=== PATIENT | male | born 1985 | race Caucasian/White ===

== ENCOUNTER 2019-08-13 12:16 | Emergency (ER) | payer MEDICAID, SELFPAY ==
[2019-08-13 12:17] VITALS: BP 120/65; PULSE 74; RESP 16; TEMP 36.6; O2SAT 97; BMI 25.7
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
[2019-08-13] MEDS: Ondansetron 4 MG/2 ML Vial IV (12:37)
[2019-08-13] MEDS: morphine 8 MG/ML Syringe 6 MG IV ×2 (12:37→13:48)
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
[2019-08-13 16:00] VITALS: BP 119/78; PULSE 69; RESP 16; O2SAT 98
== END 2019-08-13 16:03 | disposition home or self-care (01) ==
PROVIDERS: Emergency Provider Emergency Medicine
DX: S52.225A Nondisplaced transverse fracture of shaft of left ulna, initial encounter for closed fracture (principal); S01.01XA Laceration without foreign body of scalp, initial encounter; S80.02XA Contusion of left knee, initial encounter; Y00.XXXA Assault by blunt object, initial encounter; Y93.9 Activity, unspecified; Y92.9 Unspecified place or not applicable; Z72.0 Tobacco use
CPT/HCPCS: 12002; 29125; 70450; 73090; 73564; 96374; 96375; 99285; A4216; J2405

== ENCOUNTER 2020-05-21 10:35 | Emergency (ER) | payer MEDICAID, SELFPAY ==
[2020-05-21 10:36] VITALS: PULSE 91; RESP 16; TEMP 35.7; O2SAT 98; BMI 25.8
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
--- NOTE | 2020-05-21 10:49 | ED.DEP ---
ED Disposition - Plan for ED Patient: Disposition: Home or Assisted Living Instructions: ED First- and Second-Degree Sifuentes ... Referrals: Emmy Santo [NON-STAFF] - 3-5 Days if not improving Additional Instructions: Keep the wounds clean. You may shower or bathe. Wash them carefully and thoroughly. Do not break the blisters. Apply antibiotic ointment to all burn areas to try to prevent infection. Cool compresses to the burn areas to decrease pain. Tylenol and Motrin for pain. If you see signs of infection to the sifuentes such as pus or worsening and spreading redness with fever return.
[2020-05-21] MEDS: HYDROcodone Bitartrate/Apap 5/325 Tablet PO (10:56)
[2020-05-21] MEDS: Silver Sulfadiazine 1% Crm 50 gm Bottle 1 APPLIC TOPICAL (11:29)
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
== END 2020-05-21 11:39 | disposition home or self-care (01) ==
PROVIDERS: Emergency Provider Emergency Medicine
DX: T20.27XA Burn of second degree of neck, initial encounter (principal); T22.251A Burn of second degree of right shoulder, initial encounter; T22.252A Burn of second degree of left shoulder, initial encounter; T21.21XA Burn of second degree of chest wall, initial encounter; T22.211A Burn of second degree of right forearm, initial encounter; T22.212A Burn of second degree of left forearm, initial encounter; X11.8XXA Contact with other hot tap-water, initial encounter; Y93.9 Activity, unspecified; Y92.9 Unspecified place or not applicable; Z72.0 Tobacco use
CPT/HCPCS: 99283

== ENCOUNTER 2020-11-18 22:42 | Emergency (ER) | payer MEDICAID, SELFPAY ==
--- NOTE | 2020-11-18 02:10 | RAD_ITS ---
STUDY: X-RAY - RIGHT HAND, ATTENTION THIRD FINGER REASON FOR EXAM: Male, 34 years old. Injury/Pain. Tip of the third finger is dark and swollen. TECHNIQUE: 3 view(s) of the finger were obtained. COMPARISON: X-ray hand 06/17/2013. FINDINGS: Normal metacarpal head. Normal metacarpophalangeal joint. Normal proximal phalanx. Normal middle phalanx. Normal distal phalanx. Normal proximal interphalangeal joint. Normal distal interphalangeal joint. RAD/Finger(s) Min 2 Views IMPRESSION: Normal x-ray examination of the finger. Electronically Signed: Noel Brooks MD at 3:05 EDT , Service support ,
[2020-11-18 22:43] VITALS: BP 176/152; PULSE 109; RESP 18; TEMP 37.2; O2SAT 97; BMI 24.5
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
[2020-11-18] MEDS: Ziprasidone IM 20 MG/ML VIAL IM (23:35)
[2020-11-19 00:18] LABS: Absolute Lymphocyte Count 2.74 X10^3/uL (0.83-4.51); Basophil# 0.04 X10^3/uL; Basophil% 0.4 % (0-1); Eosinophil# 0.19 X10^3/uL; Eosinophils% 1.9 % (0-5); Hematocrit 36.3 % (40-54); Hemoglobin 11.9 g/dL (13.0-16.5); Lymphocyte # 2.74 X10^3/ul (0.83-4.51); Lymphocyte % 27.1 % (19-41); Mean Corp Hgb Conc 32.8 g/dL (32-36); Mean Corpuscular Hgb 27.5 pg (27.0-32.0); Mean Platelet Vol. 9.1 fl (6.2-12.0); Monocyte# 1.07 X10^3/uL; Monocyte% 10.6 % (0-10); NRBC Flagged by Analyzer 0 % (0-5); Neutrophil # 6.04 X10^3/uL (2.7-7.7); Neutrophil % 59.8 % (47-70); Platelet Count 170 K/mm3 (150-450); RBC Distribution Width CV 13.2 % (11.6-14.6); RBC Distribution Width SD 40.6 fl (35.1-43.9); Red Blood Count 4.32 M/mm3 (4.6-6.2); White Blood Count 10.1 K/mm3 (4.4-11.0)
[2020-11-19 02:02] VITALS: RESP 16
[2020-11-19 03:50] VITALS: RESP 16
== END 2020-11-19 03:53 ==
PROVIDERS: Emergency Provider Emergency Medicine
DX: M79.644 Pain in right finger(s) (principal); J45.909 Unspecified asthma, uncomplicated; F17.210 Nicotine dependence, cigarettes, uncomplicated
CPT/HCPCS: 36415; 73140; 85025; 96372; 99283; J3486

== ENCOUNTER 2022-09-14 10:56 | Outpatient (REF) | payer SELFPAY ==
[2022-09-14 10:57] VITALS: BP 127/80; PULSE 150; RESP 26; TEMP 36.6; O2SAT 100; BMI 27.3
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
--- NOTE | 2022-09-14 11:22 | NURSING ---
NO OLD EKGS
--- NOTE | 2022-09-14 11:48 | RAD_ITS ---
INDICATION: chest pain EXAMINATION/TECHNIQUE: X-RAY - XR Chest 1 View COMPARISON: None available for comparison. FINDINGS: LINES/DEVICES: None. LUNGS: No consolidation, edema or effusion. No pneumothorax. MEDIASTINUM AND CARDIOVASCULAR STRUCTURES: Cardiac silhouette not enlarged. Central airways and mediastinal contour are unremarkable. BONES AND SOFT TISSUES: Unremarkable. RAD/Chest 1 View (Portable) IMPRESSION: No radiographic evidence of acute cardiopulmonary disease. Electronically Signed: Epifanio Anthony MD at 12:09 EDT ,
== END 2022-09-14 12:05 | disposition home or self-care (01) ==
LOC: EDREF 10:56
PROVIDERS: Visit Provider Emergency Medicine
DX: R07.9 Chest pain, unspecified (principal); J45.909 Unspecified asthma, uncomplicated; F17.210 Nicotine dependence, cigarettes, uncomplicated; F15.90 Other stimulant use, unspecified, uncomplicated
CPT/HCPCS: 71045; 93005

== ENCOUNTER 2022-11-20 05:19 | Emergency (ER) | payer MEDICAID, SELFPAY ==
[2022-11-20 05:21] VITALS: BP 141/96; PULSE 118; RESP 15; TEMP 36.8; O2SAT 96; BMI 25.7
--- NOTE | 2022-11-20 05:31 | EDS_ITS ---
HPI History of Present Illness Chief Complaint: Other, Pain/Inj Informant: patient and family Narrative Narrative: Presents with sore areas in his mouth. Patient states he has had these for 2 or 3 days. No known exposures but he did just get out of assisted about 5 days ago. He admits to smoking. He has a history of using methamphetamines and from his current behavior I would be suspicious that he is using again. He denies fevers or chills. No nausea vomiting. No myalgias. He also has some abrasions and some mild rash on his legs but he states this is from cutting trees and he just scraped them up and this is consistent with the finding. [facility] Medical History Asthma Home Medications hydrocodone 7.5 mg-acetaminophen 325 mg tablet 1 ea PO 4X/DAY PRN PRN Pain Or Fever ##14 08/13/19 [Rx Last Taken Unknown] MAGIC MOUTH WASH (BMX) 180 mL suspension 15 ml buccal .QID PRN sore mouth #180 mL 11/20/22 [Rx Last Taken Unknown] Allergy/AdvReac Type Severity Reaction Status Date / Time levofloxacin [From Levaquin] Allergy Hives Verified 09/14/22 10:58 Penicillins Allergy Hives Verified 09/14/22 10:58 Social History Smoking Status: Current every day smoker tobacco type: cigarettes ROS ROS ED Constitutional Constitutional ED: Denies chills, fever(s) or sweats Eyes Eyes: Denies change in vision ENT ENT ED: Reports other Details: see HPI ; Denies ear pain or rhinorrhea Cardiovascular Cardiovascular: Denies chest pain Respiratory/Chest Respiratory/Chest: Denies cough or dyspnea Gastrointestinal Gastrointestinal: Denies nausea or vomiting Musculoskeletal Musculoskeletal: Denies arthralgias or myalgias Integumentary Reports Abrasions; Denies rash Neurologic Neurologic: Denies headache(s), paresthesias or weakness Hematologic/Lymphatic Hematologic/Lymphatic: Denies easy bleeding or easy bruising Allergic/Immunologic Allergic/Immunologic ED: Reports other Details: Sores but no swelling in his mouth ; Denies mouth swelling, tongue swelling or urticaria EXAM Physical Exam Narrative Exam Narrative: Is awake and alert. He is sitting in bed. When I talk to him he throws his arms and legs intermittently and randomly up in the air. He is twitching and shaking in bed moving his head [id number]. He does this while carrying on a normal conversation and talking with me. HEENT shows no external trauma. He does have some poor dentition. He has some sores on the soft palate and side of his mouth. They are somewhat erythematous areas about a centimeter around. These almost look like they could be sifuentes. There are no vesicles. There is no actual swelling. His voice sounds normal. He is handling secretions normally. I do not see any behind the lips or on the gingival areas. I do not see signs of acute dental infection. Neck shows no lymphadenopathy or stridor. Chest is clear to auscultation his saturations are normal at 96% on room air showing no hypoxia. Heart is mildly tachycardic but regular. I hear no murmur. Distal pulses are intact. I see no splinter hemorrhages Janeway lesions or Osler nodes. Abdomen is soft thin and nontender Extremities show a few abrasions on hands forearms in front of his legs. He states he got these cutting branches and trees and the injuries are consistent with that. None of these need suturing. They are not vesicular. There is no petechiae or purpura. Const Vital Signs: 11/20/22 05:21 11/20/22 05:27 Temperature 98.3 F Temperature Source Temporal Pulse Rate 118 H Respiratory Rate 15 Respiratory Effort Normal Non-Labored Blood Pressure 141/96 H Blood Pressure Mean 111 Pulse Ox 96 Oxygen Delivery Method Room Air MDM MDM MDM Narrative Medical decision making narrative: Rapid strep is negative. I believe his lesions certainly could be viral. It may also be localized trauma from sifuentes or other issues. He does have a long history of methamphetamine abuse. I do not see signs of dental infections or swelling that would require antibiotics. I will give him Tylenol here. I will write for some Magic mouthwash but have encouraged him not to take too much of this as it has toxic effects that can actually be very dangerous. We will give a number to otolaryngology if this is not improving and we discussed reasons to return that would include swelling, trouble swallowing, fevers or other concerns Lab Data Attestation: I reviewed the patient's lab results. Discharge Plan Triage Chief Complaint: Other, Pain/Inj ED Provider: Harish Colón Dx/Rx/DC Orders Clinical Impression: Oral lesion, History of methamphetamine use Instructions: What Are Oral Lesions ... Prescriptions: New MAGIC MOUTH WASH (BMX) 180 mL suspension 15 ml buccal .QID PRN (Reason: sore mouth) Qty: 180 0RF Rx Instructions: diphenhydramine 12.5 mg/5 mL oral liquid 60 mL; aluminum-mag hydroxide- simethicone 400 mg-400 mg-40 mg/5 mL oral susp 60 mL; Lidocaine Viscous 2 % mucosal solution 60 mL; Per 180 mL No Action hydrocodone-acetaminophen 1 EACH tablet 1 ea PO 4X/DAY PRN PRN (Reason: Pain Or Fever) Qty: 14 0RF Primary Care Provider: Care Physician,No Primary Referrals: Hardeep Dawson MD [Med Staff - Active Staff] - 3-5 Days if not improving Care Physician,No Primary [Primary Care Provider] - Disposition Disposition: Home, Self Care
[2022-11-20] MEDS: BENZOCAINE/MENTHOL 1 LOZENGE MUCOUS MEM (05:43)
[2022-11-20] MEDS: Acetaminophen 500 MG Tablet 1000 MG PO (06:32)
== END 2022-11-20 06:37 | disposition home or self-care (01) ==
PROVIDERS: Emergency Provider Emergency Medicine; Visit Provider Emergency Medicine
DX: K13.70 Unspecified lesions of oral mucosa (principal); F17.210 Nicotine dependence, cigarettes, uncomplicated; Z87.898 Personal history of other specified conditions
CPT/HCPCS: 87880; 99283

== ENCOUNTER 2022-11-21 13:28 | Inpatient (IN) | payer MEDICAID, SELFPAY ==
[2022-11-21 13:29] VITALS: BP 119/98; PULSE 121; RESP 17; TEMP 36.4; O2SAT 97; BMI 26.6
--- NOTE | 2022-11-21 13:32 | RAD_ITS ---
STUDY: X-RAY - RIGHT HAND REASON FOR EXAM: Male, 36 years old. INJURY TO INCLUDE 3 FINGER TECHNIQUE: 3 view(s) of the hand. COMPARISON: Comparison is made with prior study dated June 17, 2013. FINDINGS: Normal radiocarpal articulation. Normal distal radioulnar joint. Normal visualized carpal bones. Normal carpal articulations Normal carpometacarpal articulation of the thumb. Normal second through fifth carpometacarpal joints. The patient is status post healed mid fifth metacarpal fracture with varus deformity. Normal metacarpophalangeal joint of the thumb. Normal interphalangeal joint of the thumb. Normal proximal and distal phalanges of the thumb. Normal metacarpophalangeal joints of the second through fifth fingers. Normal proximal and distal interphalangeal joints of the second through fifth fingers. Normal phalanges of the second through fifth fingers. Diffuse soft tissue swelling. RAD/Hand Min 3 Views IMPRESSION: Diffuse soft tissue swelling. No fracture is seen. Electronically Signed: Rishi Dinero MD at 14:36 EDT ,
--- NOTE | 2022-11-21 14:33 | ED.RN ---
PT FAMILY YELLING AND TELLING OTHER PT'S THAT THERE IS ONLY ONE DR IN THIS ER AND IT IS RIDICULOUS. ATTEMPTED TO EXPLAIN THAT WE HAVE MORE THAN ONE DR AND FAMILY MEMBER STATES WE ARE DOING A GOOD JOB AND HOW ARE YOU GOING TO LIKE IT WHEN YOU ARE ON THE NEWS. PT GIVEN TWO ICE PACKS FOR HIS INJURY.
--- NOTE | 2022-11-21 14:51 | ED.RN ---
SPOKE WITH TC REGARDING FAMILY MEMBER BEING DISRESPECTFUL, SHE SAID TO HAVE SECURITY TO HAVE HIM LEAVE.
--- NOTE | 2022-11-21 15:02 | ED.RN ---
pt went up to volunteer Jacoby and thanked him for having the family member removed, stated i didnt feel safe.
--- NOTE | 2022-11-21 15:08 | EDS_ITS ---
HPI History of Present Illness Chief Complaint: Upper Extremity Injury Detail of Chief Complaint: Pain and swelling to the right middle finger Informant: patient Narrative Narrative: Patient presents the emergency department with complaint of pain and swelling to his right middle finger that he states started yesterday when somebody bent his finger back. Patient is a poor historian. Also complains of pain and swelling to his left index finger. Denies fevers or chills or sweats. Is right-hand dominant. Tells me he has no medical problems but allergic to Levaquin and penicillin. He denies injecting IV drugs or illicit drug use currently. Patient states that he has used methamphetamines in the past but not for a long time. PFSH PFSH Medical History Anxiety Asthma Bipolar disorder Depression Hepatitis History of intravenous drug abuse Kidney disease Polysubstance abuse PTSD (post-traumatic stress disorder) Schizophrenia Smoker Substance abuse Tobacco use Allergy/AdvReac Type Severity Reaction Status Date / Time levofloxacin [From Levaquin] Allergy Hives Verified 11/21/22 19:10 Penicillins Allergy Hives Verified 11/21/22 19:10 Family History (Updated 11/21/22 @ 16:[address] Codi Shafer MD) Mother COPD (chronic obstructive pulmonary disease) Father Bladder cancer Surgical History (Updated 11/21/22 @ 16:[address] Codi Shafer MD) History of brain surgery Social History (Updated 11/21/22 @ 16:[address] Codi Shafer MD) household members: significant other Smoking Status: Current every day smoker tobacco type: cigarettes Smoking packs per day: 0.5 Smoking cigarettes per day: 10.0 alcohol intake: current alcohol intake frequency: a few times a week substance use type: IV drugs and methamphetamine ROS ROS ED Review of Systems ROS Unobtainable: other Constitutional Constitutional ED: Reports lethargy; Denies chills, fever(s), sweats or weight loss Eyes Eyes: Denies blurry vision, change in vision or diplopia ENT ENT ED: Denies rhinorrhea or sore throat Cardiovascular Cardiovascular: Denies chest pain, orthopnea or racing heartbeat Respiratory/Chest Respiratory/Chest: Denies cough, dyspnea, dyspnea on exertion, orthopnea or sputum Gastrointestinal Gastrointestinal: Denies abdominal pain, diarrhea, nausea or vomiting Genitourinary Genitourinary ED: Denies dysuria, hematuria or urinary frequency Musculoskeletal Musculoskeletal: Denies arthralgias, back pain, myalgias or neck pain Integumentary Reports other Details: Pain and swelling to right middle finger and left index finger ; Denies abscess, Abrasions or rash Neurologic Neurologic: Denies headache(s) or weakness Psychiatric Psychiatric: Denies anxiety, depression or suicidal thoughts Endocrine Endocrinology: Denies polydipsia, polyphagia or polyuria Hematologic/Lymphatic Hematologic/Lymphatic: Denies easy bleeding, easy bruising or lymphadenopathy Allergic/Immunologic Allergic/Immunologic ED: Denies mouth swelling, tongue swelling or urticaria EXAM Physical Exam Const Vital Signs: 11/21/22 13:29 Temperature 97.5 F L Temperature Source Temporal Pulse Rate 121 H Respiratory Rate 17 Blood Pressure 119/98 H Blood Pressure Mean 105 Pulse Ox 97 Oxygen Delivery Method Room Air Positive well nourished and well developed General Appearance ED: well developed and NAD HEENT Reports TM's clear and moist mucous membranes normocephalic and atraumatic; Negative for trauma or tenderness Tympanic Membrane ED: Yes TM's clear Eyes PERRL and EOMs intact bilaterally General Eye ED: Negative for pale conjunctiva or scleral icterus Neck no lymphadenopathy, supple and no JVD General: Negative for tenderness Chest Wall inspection of chest normal and palpation of chest normal Chest: Negative for tenderness Resp normal respiratory effort and clear to auscultation bilaterally Effort and Inspection: Negative for respiratory distress or pain with movement Auscultation: Negative for rhonchi, wheezes or diminished lung sounds Cardio regular rate, regular rhythm, S1 normal heart sound, S2 normal heart sound and no murmurs Peripheral Pulses: pulses 2+ throughout GI normal to inspection, nondistended, normoactive bowel sounds, soft to palpation, non-tender, non-distended and no masses Back/Spine no CVA tenderness and no thoracic nor lumbar tenderness Extremity Extremity Narrative: Evaluation of the right hand reveals diffuse sausage shaped digit of right middle finger with diffuse soft tissue swelling over the volar aspect of the proximal phalanx. Patient has inability to flex or extend the digit. Finger is erythematous and warm to the touch. There is lymphangitic streaking and cellulitic changes that extend to the antecubital region. Left index finger. Patient has tenderness and swelling to the distal phalanx pulp with erythema and warmth. Exam consistent with felon General Extremety ED: Negative for edema General Extremity: Negative for edema Neuro oriented x3, CN's II-XII intact bilaterally, no sensory deficits noted and gait normal Sensorium / Orientation: awake, alert, oriented to person, oriented to place and oriented to time Motor Exam: strength 5/5 throughout and strength abnormal Psych mental status grossly normal Skin no rashes or lesions noted and no wounds MDM MDM MDM Narrative Medical decision making narrative: Patient presents with what I feel is a flexor tenosynovitis involving the right long finger and a felon of the left index finger. IV line will be established. Patient will be started on clindamycin IV. I discussed case with orthopedic surgeon on-call Dr. Louis who will present to the emergency department to evaluate patient for possible surgical intervention. Patient started on IV clindamycin empirically. Patient has an elevated white count 28,000 and acute kidney injury with a creatinine of 2.98. Discussed case with orthopedics who saw patient in the emergency department. Discussed case with hospitalist who will admit patient. Lab Data Attestation: I reviewed the patient's lab results. Radiography Diagnostic Testing: Clinical Impression(s) from Imaging Studies Hand X-Ray 11/21/22 13:32 IMPRESSION: Diffuse soft tissue swelling. No fracture is seen. Electronically Signed: Rishi Dinero MD at 14:36 EDT , Three-view x-rays of right hand obtained interpreted by myself as no evidence of fracture or dislocation. Radiology in agreement. There is soft tissue swelling noted over the middle finger and dorsum of the hand Discharge Plan Dx/Rx/DC Orders Clinical Impression: Cellulitis, Felon of finger, Flexor tenosynovitis of finger, VENECIA (acute kidney injury), Leukocytosis Disposition Disposition: Acute Care Hospital [facility] Discharge Date/Time: 11/21/22 19:18
[2022-11-21] MEDS: Clindamycin 900 MG/50 ML BAG 75 MG IV (15:35)
[2022-11-21 15:36] LABS: Absolute Lymphocyte Count 1.71 X10^3/uL (0.83-4.51); Absolute Neutrophil Count 23.7 X10^3/uL (2.0-7.7); Basophil# 0.07 X10^3/uL; Basophil% 0.2 % (0-1); Hemoglobin 13.3 g/dL (13.0-16.5); Lymphocyte # 1.71 X10^3/ul (0.83-4.51); Mean Corp Hgb Conc 35.9 g/dL (32-36); Mean Corpuscular Volume 80.6 fL (80-94); Monocyte# 2.63 X10^3/uL; Monocyte% 9.3 % (0-10); NRBC Flagged by Analyzer 0 % (0-5); Neutrophil % 83.8 % (47-70); POSITIVE DIFFERENTIAL YES; Platelet Count 178 K/mm3 (150-450); RBC Distribution Width CV 12.6 % (11.6-14.6); RBC Distribution Width SD 36.4 fl (35.1-43.9); Red Blood Count 4.59 M/mm3 (4.6-6.2); White Blood Count 28.3 K/mm3 (4.4-11.0)
[2022-11-21 15:41] VITALS: BP 142/71; PULSE 108; RESP 18; TEMP 36.4; O2SAT 96
[2022-11-21 15:44] LABS: Anion Gap 12 (5-15); BUN 75 mg/dL (7-18); BUN/Creat Ratio 25.2 RATIO (10-20); Calcium,Total 8.6 mg/dL (8.5-10.1); Chloride 99 mmol/L (98-107); Creatinine, Serum 2.98 mg/dL (0.70-1.30); EST Glomerular Filtration Rate 25 mL/min (>60); Est Glom Filt Rate - Afr Amer 31 mL/min (>60); Estimated Creatinine Clearance 33.94 ml/min; Glucose 126 mg/dL (74-106); Potassium 3.6 mmol/L (3.5-5.1); Sodium Level 132 mmol/L (136-145)
[2022-11-21 16:08] LABS: Differential Indicated SCAN CRITERIA MET
--- NOTE | 2022-11-21 16:30 | HP.PCM.HOS_ITS ---
HPI - General General Date of Admission: 11/21/22 Date of Service: 11/21/22 Chief Complaint: Right middle finger swelling, redness, pain after injury day prior. HPI Narrative The patient is a 36 y/o M w/ PMHx: Asthma, Polysubstance abuse who presents to the [facility] ED on 11/21/22 recently out of nursing home 6 days prior to current presentation with known history of methamphetamine abuse with history of pain and swelling to the right middle finger starting the day prior following an injury with his finger bending backwards with no fevers or chills but he is right-hand dominant with denied IV drug abuse or current illicit drug abuse despite history of methamphetamine abuse prompting ED evaluation. Work-up in the ED included T97.5, heart rate 108, BP 142/71, respiratory rate 18, 96% on room air, CBC with WBC 28.3, hemoglobin 13.3, platelet 178 with left shift, BMP with sodium 132, BUN/creatinine 75/2.98, glucose 126, plain film of the right hand with significant diffuse soft tissue swelling with no acute fracture demonstrated, urine drug screen ordered per ED physician but not resulted upon requested evaluation of patient. In the ED patient ministered Zofran 4 mg IV x1, morphine 4 mg IV x1, Ativan 1 mg IV x1, 1 L normal saline bolus as well as IV clindamycin. ED physician discussed case with Dr. Louis who noted amenability to admission to [facility] and plan to evaluate and treat surgically if needed. Evaluation of the right hand reveals diffuse sausage shaped digit of right middle finger with diffuse soft tissue swelling over the volar aspect of the proximal phalanx. Patient has inability to flex or extend the digit. Finger is erythematous and warm to the touch. There is lymphangitic streaking and cellulitic changes that extend to the antecubital region. #1. Acute flexor tenosynovitis of the right middle finger as well as a felon of the left index finger: Will admit to medical surgical floor, maintain on IV vancomycin as well as IV Rocephin with requested wound Cx as well as wound MRSA PCR if drainage able to be obtained, plan repeat CBC in AM, continue affected extremity elevation above heart when seated and in bed, monitor erythema outline with VS checks, urine drug screen of note is pending given polysubstance abuse history although currently denying, will have as needed pain regimen, as needed antiemetic regimen, orthopedic surgery consulted and following. #2. Acute kidney injury: Secondary to acute presentation likely #1. Admission BUN/Cr 75/2.98, with no clear prior baseline but given age and no marked medical history would expect it to be normal, will hydrate, hold nephrotoxic medications and repeat chemistry in AM. If no improvement would plan FeNa and renal ultrasound assessment. #3. Polysubstance Abuse: Patient currently denying any current usage including methamphetamines which has been documented previously, recently out of nursing home, urine drug screen is pending, to be cautious we will also obtain hepatitis panel and HIV. #4. Hyperglycemia, mild: Admission glucose 126, suspect stress response however if remains elevated on repeat testing may consider hemoglobin A1c #5. Tobacco Abuse: Encouraged cessation, inpatient consultation per RT, NR if desired. #6. Chronic asthma: Not on any chronic regimen, will have PRN albuterol, HOB, IS parameters. #7. DVT prophylaxis: SCDs, hold chemoprophylaxis in case of OR needs. [facility] Medical History Asthma Home Medications hydrocodone 7.5 mg-acetaminophen 325 mg tablet 1 ea PO 4X/DAY PRN PRN Pain Or Fever ##14 08/13/19 [Rx Last Taken Unknown] MAGIC MOUTH WASH (BMX) 180 mL suspension 15 ml buccal .QID PRN sore mouth #180 mL 11/20/22 [Rx Last Taken Unknown] Allergy/AdvReac Type Severity Reaction Status Date / Time levofloxacin [From Levaquin] Allergy Hives Verified 09/14/22 10:58 Penicillins Allergy Hives Verified 09/14/22 10:58 Social History Smoking Status: Current every day smoker tobacco type: cigarettes Vital Signs Vital Signs Vital Signs: 11/21/22 13:29 11/21/22 15:41 Temperature 97.5 F L 97.5 F L Temperature Source Temporal Temporal Pulse Rate 121 H 108 H Respiratory Rate 17 18 Blood Pressure 119/98 H 142/71 H Blood Pressure Mean 105 94 Pulse Ox 97 96 Oxygen Delivery Method Room Air Room Air Weight Weight: 180 lb Body Mass Index (BMI) 26.6 Results Lab / Micro Data 11/21/22 15:20 11/21/22 15:20 Labs: Laboratory Results - last 24 hr 11/21/22 15:20: WBC 28.3 H, RBC 4.59 L, Hgb 13.3, Hct 37.0 L, MCV 80.6, MCH 29.0, MCHC 35.9, RDW Std Deviation 36.4, RDW Coeff of Praveen 12.6, Plt Count 178, MPV 10.0, Immature Gran % (Auto) 0.700, Neut % (Auto) 83.8 H, Lymph % (Auto) 6.0 L, [place] % (Auto) 9.3, Eos % (Auto) 0.0, Baso % (Auto) 0.2, Absolute Neuts (auto) 23.7 H, Absolute Lymphs (auto) 1.71, Nucleated RBC % 0, Sodium 132 L, Potassium 3.6, Chloride 99, Carbon Dioxide 21.0, Anion Gap 12, BUN 75 H, Creatinine 2.98 H , Estim Creat Clear Calc 33.94, Est GFR (MDRD) Af Amer 31 L, Est GFR (MDRD) Non- Af 25 L, BUN/Creatinine Ratio 25.2 H, Glucose 126 H, Calcium 8.6 Radiology Impression Hand X-Ray 11/21/22 13:32 IMPRESSION: Diffuse soft tissue swelling. No fracture is seen. Electronically Signed: Rishi Dinero MD at 14:36 EDT ,
--- NOTE | 2022-11-21 16:30 | PCM.HP.STD ---
HPI - General General Date of Admission: 11/21/22 Date of Service: 11/21/22 Chief Complaint: Right middle finger swelling, redness, pain after injury day prior. HPI Narrative The patient is a 36 y/o M w/ PMHx: PTSD, Asthma, Polysubstance abuse who presents to the [facility] ED on 11/21/22 recently out of snf 6 days prior to current presentation with known history of methamphetamine abuse with history of pain and swelling to the right middle finger starting the day prior following an injury with his finger bending backwards with no fevers or chills but he is right-hand dominant with denied IV drug abuse or current illicit drug abuse despite history of methamphetamine abuse prompting ED evaluation. Patient is extremely restless in the room and intermittently agitated. Significant other who is present believes that he is back on methamphetamines with IV usage in the past possibly currently snorting. Patient reports severe pain sharp stabbing and dull aching to the right middle finger 10 out of 10 in severity. Work-up in the ED included T97.5, heart rate 108, BP 142/71, respiratory rate 18, 96% on room air, CBC with WBC 28.3, hemoglobin 13.3, platelet 178 with left shift, BMP with sodium 132, BUN/creatinine 75/2.98, glucose 126, plain film of the right hand with significant diffuse soft tissue swelling with no acute fracture demonstrated, urine drug screen ordered per ED physician but not resulted upon requested evaluation of patient. In the ED patient ministered Zofran 4 mg IV x1, morphine 4 mg IV x1, Ativan 1 mg IV x1, 1 L normal saline bolus as well as IV clindamycin. ED physician discussed case with Dr. Louis who noted amenability to admission to [facility] and is in the ED with planned bedside I&D if able. [facility] Medical History Asthma History of intravenous drug abuse Polysubstance abuse PTSD (post-traumatic stress disorder) Tobacco use Home Medications hydrocodone 7.5 mg-acetaminophen 325 mg tablet 1 ea PO 4X/DAY PRN PRN Pain Or Fever ##14 08/13/19 [Rx Last Taken Unknown] MAGIC MOUTH WASH (BMX) 180 mL suspension 15 ml buccal .QID PRN sore mouth #180 mL 11/20/22 [Rx Last Taken Unknown] Allergy/AdvReac Type Severity Reaction Status Date / Time levofloxacin [From Levaquin] Allergy Hives Verified 09/14/22 10:58 Penicillins Allergy Hives Verified 09/14/22 10:58 Family History (Updated 11/21/22 @ 16:[address] Codi Shafer MD) Mother COPD (chronic obstructive pulmonary disease) Father Bladder cancer Surgical History (Updated 11/21/22 @ 16:[address] Codi Shafer MD) History of brain surgery Social History (Updated 11/21/22 @ 16:[address] Codi Shafer MD) household members: significant other Smoking Status: Current every day smoker tobacco type: cigarettes Smoking packs per day: 0.5 Smoking cigarettes per day: 10.0 alcohol intake: current alcohol intake frequency: a few times a week substance use type: IV drugs and methamphetamine ROS ROS Narrative Admission Review of Systems: CONSTITUTIONAL: No weight loss, fever, + chills, weakness or fatigue. HEENT: Eyes: No visual loss, blurred vision, double vision or yellow sclerae. Ears, Nose, Throat: No hearing loss, sneezing, congestion, runny nose or sore throat. SKIN: + Right hand middle finger with swelling, redness, streaking up the arm as well as various staged ecchymoses to the thorax and extremities in addition to various abrasions and pick regions CARDIOVASCULAR: No chest pain, chest pressure or chest discomfort, palpitations, edema, orthopnea, syncopal events. RESPIRATORY: No shortness of breath, cough or sputum, wheezing, hemoptysis. GASTROINTESTINAL: No anorexia, nausea, vomiting or diarrhea, abdominal pain, melena, BRBPR. GENITOURINARY: No dysuria, frequency, urgency or retention. NEUROLOGICAL: No headache, dizziness, syncope, paralysis, ataxia, numbness or tingling in the extremities, focal weakness, change in bowel or bladder control, seizure. MUSCULOSKELETAL: + muscle, back pain, joint pain or stiffness. HEMATOLOGIC: No anemia, bleeding or bruising. LYMPHATICS: No enlarged nodes. No history of splenectomy. PSYCHIATRIC: + Reports history of PTSD. ENDOCRINOLOGIC: No reports of sweating, cold or heat intolerance. No polyuria or polydipsia. ALLERGIES: + history of asthma, hives. Vital Signs Vital Signs Vital Signs: 11/21/22 13:29 11/21/22 15:41 Temperature 97.5 F L 97.5 F L Temperature Source Temporal Temporal Pulse Rate 121 H 108 H Respiratory Rate 17 18 Blood Pressure 119/98 H 142/71 H Blood Pressure Mean 105 94 Pulse Ox 97 96 Oxygen Delivery Method Room Air Room Air Weight Weight: 180 lb Body Mass Index (BMI) 26.6 Physical Exam Narrative Physical Examination: General: Awake, alert, oriented to self, place and recent events but is extremely restless and agitated, will still follow some commands but suspect under the influence of illicit drugs, seated upright in the ED bed, reports significant pain to the right middle finger. Skin: Normal color, normal turgor, no icterus, no cyanosis except for notable very staged ecchymotic changes, abrasions, picked regions as well as right middle finger with significant swelling with inability to flex or markedly extend, erythematous, warm to touch with lymphatic streaking up the arm. HEENT: AT/NC, EOMI, PERRLA, dry MM, poor dentition, no carotid bruits or JVD noted. Lungs: Diminished, greater bases, proper effort, no rales, ronchi or wheezing. Heart: Tachycardic with regular rhythm; no gallop, rub audible. Abdomen: Soft, NTTP, ND, mildly hyperactive BS, no HSM. Extremities: No cyanosis, no clubbing, no distal edema, see skin for right hand evaluation. Neurological: Patient awake, alert, oriented as noted, cognitive function intact; pupils equally reactive to light and accommodation, cranial nerves II-XII grossly normal, moving all 4 extremities except limitation right hand given significant pain, strength moderately globally decreased. Psychiatric: Affect appears agitated, restless, admits to PTSD, currently no acute evidence of depressive or anxiety feelings. Results Lab / Micro Data 11/21/22 15:20 11/21/22 15:20 Labs: Laboratory Results - last 24 hr 11/21/22 15:20: WBC 28.3 H, RBC 4.59 L, Hgb 13.3, Hct 37.0 L, MCV 80.6, MCH 29.0, MCHC 35.9, RDW Std Deviation 36.4, RDW Coeff of Praveen 12.6, Plt Count 178, MPV 10.0, Immature Gran % (Auto) 0.700, Neut % (Auto) 83.8 H, Lymph % (Auto) 6.0 L, [place] % (Auto) 9.3, Eos % (Auto) 0.0, Baso % (Auto) 0.2, Absolute Neuts (auto) 23.7 H, Absolute Lymphs (auto) 1.71, Nucleated RBC % 0, Sodium 132 L, Potassium 3.6, Chloride 99, Carbon Dioxide 21.0, Anion Gap 12, BUN 75 H, Creatinine 2.98 H, Estim Creat Clear Calc 33.94, Est GFR (MDRD) Af Amer 31 L, Est GFR (MDRD) Non-Af 25 L, BUN/Creatinine Ratio 25.2 H, Glucose 126 H, Calcium 8.6 Radiology Impression Hand X-Ray 11/21/22 13:32 IMPRESSION: Diffuse soft tissue swelling. No fracture is seen. Electronically Signed: Rishi Dinero MD at 14:36 EDT , Assessment & Plan Assessment/Plan (1) Flexor tenosynovitis of finger: PLAN: Plan The patient is a 36 y/o M w/ PMHx: PTSD, Asthma, Polysubstance abuse who presents to the [facility] ED on 11/21/22 recently out of snf 6 days prior to current presentation with known history of methamphetamine abuse with history of pain and swelling to the right middle finger starting the day prior following an injury with his finger bending backwards with no fevers or chills but he is right-hand dominant with denied IV drug abuse or current illicit drug abuse despite history of methamphetamine abuse prompting ED evaluation. #1. Acute flexor tenosynovitis of the right middle finger as well as a felon of the left index finger: Will admit to medical surgical floor, maintain on IV vancomycin as well as IV Rocephin with requested wound Cx as well as wound MRSA PCR if drainage able to be obtained, plan repeat CBC in AM, continue affected extremity elevation above heart when seated and in bed, monitor erythema outline with VS checks, urine drug screen of note is pending given polysubstance abuse history although currently denying, will have as needed pain regimen, as needed antiemetic regimen, orthopedic surgery consulted and following, n.p.o. status after midnight in case of operative intervention needs. #2. Acute kidney injury: Secondary to acute presentation likely #1. Admission BUN/Cr 75/2.98, with no clear prior baseline but given age and no marked medical history would expect it to be normal, will hydrate, hold nephrotoxic medications and repeat chemistry in AM. If no improvement would plan FeNa and renal ultrasound assessment. #3. Polysubstance Abuse: Patient currently denying any current usage including methamphetamines which has been documented previously, recently out of snf, urine drug screen is pending, to be cautious we will also obtain hepatitis panel and HIV. Liver profile also requested. #4. Hyperglycemia, mild: Admission glucose 126, suspect stress response however if remains elevated on repeat testing may consider hemoglobin A1c #5. Tobacco Abuse: Encouraged cessation, inpatient consultation per RT, NR if desired. #6. Chronic asthma: Not on any chronic regimen, will have PRN albuterol, HOB, IS parameters. #7. PTSD: Patient reports significant PTSD, requesting following discharge referral for evaluation and treatment. #8. Possible previous remote trauma with head injury: Significant present reports that patient did require frontal brain surgery following trauma, unclear specific interventions. #9. DVT prophylaxis: SCDs, hold chemoprophylaxis in case of OR needs. #10. CODE status: Patient HCPOA is his significant other who is present although no living will is in place. Full code. Charges/Coding Visit Charges Inpatient E&M: 44711 Init Hosp L3
[2022-11-21 16:34] LABS: Differential Comment SCANNED
--- NOTE | 2022-11-21 16:34 | NURSING ---
MED SURG WHITE RT MIDDLE FINGER FLEXOR TENOSYNOVITIS, VENECIA, LEUKOCYTOSIS, CELLULITIS
[2022-11-21] MEDS: LORazepam 2 MG/ML Syringe 1 MG IV (16:38)
[2022-11-21] MEDS: Ondansetron 4 MG/2 ML Vial IV (16:38)
[2022-11-21] MEDS: Morphine 4 MG/ML Syringe IV ×2 (16:38→18:35)
[2022-11-21] MEDS: 0.9% Normal Saline (1000mL) 1,000 ML 999 ML IV ×3 (16:42→20:51)
--- NOTE | 2022-11-21 17:17 | CON.PCM.OR_ITS ---
HPI Consult Data Date of Consult: 11/21/22 Attending Care Provider: Dr. Codi Shafer HPI Narrative Reason for Consultation: Right long finger infection HPI Narrative: LISSETTE OBANDO, is a 36 M who presents to [facility] emergency department that he states started approximately 3 days ago. He admits to no penetrating injury. He denies any IV drug use. Patient has history of methamphetamine use. Patient is right-hand dominant. He reports redness streaking up his right arm starting this morning. This prompted his emergency department visit. He reports no significant past medical history. Patient was seen in the emergency department. He was started on IV antibiotics. I was consulted due to concern for flexor tenosynovitis of the right long finger. Patient also notes pain and swelling in his left index finger. Believes this is from cutting his nails too short. He denies a history of nail biting. Denies any current recreational drug use. Denies any fevers, chills, nausea vomiting, chest pain or shortness of breath. [facility] Medical History Asthma History of intravenous drug abuse Polysubstance abuse PTSD (post-traumatic stress disorder) Tobacco use Home Medications hydrocodone 7.5 mg-acetaminophen 325 mg tablet 1 ea PO 4X/DAY PRN PRN Pain Or Fever ##14 08/13/19 [Rx Last Taken Unknown] MAGIC MOUTH WASH (BMX) 180 mL suspension 15 ml buccal .QID PRN sore mouth #180 mL 11/20/22 [Rx Last Taken Unknown] Allergy/AdvReac Type Severity Reaction Status Date / Time levofloxacin [From Levaquin] Allergy Hives Verified 09/14/22 10:58 Penicillins Allergy Hives Verified 09/14/22 10:58 Family History (Updated 11/21/22 @ 16:[address] Codi Shafer MD) Mother COPD (chronic obstructive pulmonary disease) Father Bladder cancer Surgical History (Updated 11/21/22 @ 16:[address] Codi Shafer MD) History of brain surgery Social History (Updated 11/21/22 @ 16:[address] Codi Shafer MD) household members: significant other Smoking Status: Current every day smoker tobacco type: cigarettes Smoking packs per day: 0.5 Smoking cigarettes per day: 10.0 alcohol intake: current alcohol intake frequency: a few times a week substance use type: IV drugs and methamphetamine ROS ROS Narrative 12 point review systems obtained, negative unless otherwise noted in HPI. Vital Signs Vital Signs Vital Signs: 11/21/22 13:29 11/21/22 15:41 Temperature 97.5 F L 97.5 F L Temperature Source Temporal Temporal Pulse Rate 121 H 108 H Respiratory Rate 17 18 Blood Pressure 119/98 H 142/71 H Blood Pressure Mean 105 94 Pulse Ox 97 96 Oxygen Delivery Method Room Air Room Air Weight Weight: 180 lb Body Mass Index (BMI) 26.6 Physical Exam Narrative General -A&Ox3, appears anxious. Vital signs stable, afebrile. Respiratory -normal work of breathing, no intercostal retractions. CV -pulses regular, brisk capillary refill ?4 limbs. Abdomen-soft, nontender, nondistended. No guarding, rigidity, rebound tenderness. Musculoskeletal/neurologic -full range of motion nontender throughout bilateral lower extremities. Neurovascular intact throughout. Right hand: Lymphangitic streaking noted throughout the volar right forearm into the upper brachium. Tenderness to the right long finger flexor tendon sheath, pain with passive extension, flexion posturing and fusiform swelling. Early ecchymosis and apparent subcutaneous purulence is suspected along the radial asp ect of the PIP joint. There is brisk capillary refill in the fingertip. Sensation intact light touch median/ulnar/radial nerve distributions. Cardinal motions are intact to the right hand. Radial pulse 2+. Left hand: Swelling and erythema noted along the distal phalanx of the left index finger. No obvious purulence. Finger pulp is soft but tender. No obvious paronychia. Brisk capillary fill in all the digits. Cardinal motions of the left hand are intact. Sensation intact to light touch median/ulnar/radial nerve distribution. Radial pulse 2+. Lab / Micro Data 11/21/22 15:20 11/21/22 15:20 Labs: Laboratory Results - last 24 hr 11/21/22 15:20: WBC 28.3 H, RBC 4.59 L, Hgb 13.3, Hct 37.0 L, MCV 80.6, MCH 29.0, MCHC 35.9, RDW Std Deviation 36.4, RDW Coeff of Praveen 12.6, Plt Count 178, MPV 10.0, Immature Gran % (Auto) 0.700, Neut % (Auto) 83.8 H, Lymph % (Auto) 6.0 L, [place] % (Auto) 9.3, Eos % (Auto) 0.0, Baso % (Auto) 0.2, Absolute Neuts (auto) 23.7 H, Absolute Lymphs (auto) 1.71, Nucleated RBC % 0, Differential Comment SCANNED, Diff Path Review May foll, Sodium 132 L, Potassium 3.6, Chloride 99, Carbon Dioxide 21.0, Anion Gap 12, BUN 75 H, Creatinine 2.98 H, Estim Creat Clear Calc 33.94, Est GFR (MDRD) Af Amer 31 L, Est GFR (MDRD) Non-Af 25 L, BUN/Creatinine Ratio 25.2 H, Glucose 126 H, Calcium 8.6 Radiology Impression Hand X-Ray 11/21/22 13:32 IMPRESSION: Diffuse soft tissue swelling. No fracture is seen. Electronically Signed: Rishi Dinero MD at 14:36 EDT , Assessment & Plan Assessment/Plan (1) Flexor tenosynovitis of finger: PLAN: 06/04 [place] signs of the right long finger I recommended initiation of IV antibiotics, strict elevation. I recommended bedside I&D due to the lymphangitic streaking. Informed consent was obtained. See procedure note for further details. Patient tolerated procedure well. Purulent fluid encountered in the flexor tendon sheath sent for culture including MRSA. N.p.o. after midnight. MRSA coverage with IV antibiotics. I will recheck patient in the morning with plans to pull packing and reassessment. Possible I&D tomorrow. (2) Felon of finger: PLAN: This appears to be an early felon of the left index finger. We will monitor for improvement with IV antibiotics. Elevation to left hand. May consider I&D tomorrow.
--- NOTE | 2022-11-21 17:24 | PCM.OPRPT ---
Report of Operation Date of Procedure: 11/21/22 Description of Surgical Findings:: Preoperative diagnosis: Right long finger flexor tenosynovitis, questionable dorsal finger abscess Postoperative diagnosis: Right long finger purulent flexor tenosynovitis Surgeon: Thomas Louis DO Anesthesia: Digital nerve block Estimated blood loss: 10 cc IV fluids: None Urine output: None Specimen: Aerobic and anaerobic cultures, MRSA PCR culture right long finger flexor tendon purulent fluid Packin inches of iodoform packing in the flexor incision, 3 inches iodoform packing the dorsal incision Preoperative indications: Suspected right long finger flexor tenosynovitis Description of procedure: Informed sent obtained. I reviewed the risks, benefits and alternatives to procedure with patient. Overlying the MCP joint, skin was prepped with Betadine. A 25-gauge needle was used to perform a digital nerve block with 10 cc total of 1% lidocaine with epinephrine 1: 100,000. Patient tolerated procedure well without complication. After approximately 10 minutes, return to the room. The long finger was anesthetized appropriately. We prepped and draped the right hand with Betadine. I then turned my attention to the dorsal suspected abscess. A longitudinal incision was made overlying the PIP joint. I bluntly dissected in the subcutaneous plane. Sanguinous fluid was encountered and without purulence. This was irrigated with normal saline. I then turned my attention volarly. An oblique incision was made overlying the proximal phalanx. I bluntly dissected down to the level of the flexor tendon. Flexor tendon sheath was opened. Approximately 5 cc of purulent fluid was encountered and expressed. This was cultured. I then irrigated the wound with 100 cc of normal saline solution. Iodoform packing was then placed in both incisions. Sterile compression dressing was applied. Patient tolerated procedure well without apparent complication. Postoperative plan: Strict elevation right hand. IV antibiotics. Cultures pending. N.p.o. after midnight for possible formal I&D in the operative suite.
[2022-11-21 17:32] LABS: AST(SGOT) 668 U/L (15-37); Alanine Aminotransfer ALT/SGPT 267 U/L (16-61); Albumin, Serum 3.6 g/dL (3.2-5.0); Alkaline Phosphatase 88 U/L (45-117); Bilirubin, Direct 0.63 mg/dL (0.00-0.30); Protein, Total 7.6 g/dL (6.4-8.2)
[2022-11-21 17:35] VITALS: BP 142/71; PULSE 107; RESP 18; TEMP 37.9; O2SAT 98
[2022-11-21 18:07] LABS: HIV - WCH Non-Reactive (Nonreactive)
[2022-11-21 18:40] LABS: Lactic Acid 0.7 mmol/L (0.4-1.9)
[2022-11-21 19:31] VITALS: BMI 25.5
[2022-11-21 19:43] VITALS: BP 124/69; PULSE 99; RESP 20; TEMP 37; O2SAT 96
[2022-11-21 20:19] LABS: M R Staph aureus DNA By PCR Negative (Negative); Probe Check PASS; Specimen Processing Control PASS; Staph aureus DNA By PCR POSITIVE (Negative)
[2022-11-21] MEDS: Vancomycin HCl 2,000 MG in 0.9% Normal Saline (500mL Bag) 500 ML 250 MG IV (21:47)
[2022-11-21] MEDS: 0.9% Normal Saline (1000mL) 1,000 ML 125 ML IV (21:48)
[2022-11-21 21:53] LABS: Hepatitis B Surface Antibody Reactive; Hepatitis B Surface Antigen Non-Reactive (Nonreactive)
[2022-11-21 21:55] LABS: Hepatitis C Antibody Reactive (Nonreactive)
[2022-11-21] MEDS: Morphine 2 MG/ML Syringe 4 MG IV (23:01)
[2022-11-21] MEDS: BMX LIQUID 180 ML 15 ML PO (23:19)
[2022-11-21] MEDS: Acetaminophen 325 MG Tablet 650 MG PO (23:24)
[2022-11-22] MEDS: Ceftriaxone 2 GM in 0.9% Normal Saline (50mL MB+) 50 ML IV ×2 (00:33→08:36)
[2022-11-22 01:57] VITALS: BP 118/60; PULSE 80; RESP 18; TEMP 37.7; O2SAT 95
[2022-11-22] MEDS: Morphine 2 MG/ML Syringe 4 MG IV ×2 (03:08→21:38)
[2022-11-22] MEDS: 0.9% Normal Saline (1000mL) 1,000 ML 125 ML IV (04:55)
--- NOTE | 2022-11-22 06:08 | PCM.RX.CS ---
Consult Antibiotic Management Pharmacy has been consulted to manage selected antiobiotic: Vancomycin Type of Intervention Type of Consult: New start Labs Labs: Sodium 132 mmol/L (136-145) L 11/21/22 15:20 Potassium 3.6 mmol/L (3.5-5.1) 11/21/22 15:20 Chloride 99 mmol/L (98-107) 11/21/22 15:20 Carbon Dioxide 21.0 mmol/L (21.0-32.0) 11/21/22 15:20 Anion Gap 12 (5-15) 11/21/22 15:20 BUN 75 mg/dL (7-18) H 11/21/22 15:20 Creatinine 2.98 mg/dL (0.70-1.30) H 11/21/22 15:20 Est GFR (MDRD) Af Amer 31 mL/min (>60) L 11/21/22 15:20 Est GFR (MDRD) Non-Af 25 mL/min (>60) L 11/21/22 15:20 BUN/Creatinine Ratio 25.2 RATIO (10-20) H 11/21/22 15:20 Glucose 126 mg/dL (74-106) H 11/21/22 15:20 Goal Trough Goal Trough: 15-20 mcg/mL Pharmacy Plan for Drug Dosing Pharmacy Plan for Drug Dosing: Pharmacy Service will continue to monitor and adjust dosing as required. Follow-Up Labs Follow-Up Labs: Trough: Vancomycin Date/Time Labs Ordered Labs to be done on [date and time ordered]: 11/23 @ 5389
--- NOTE | 2022-11-22 07:32 | PN.ORTHO_ITS ---
Subjective Subjective Patient seen and examined. Reports subjective fevers this morning. Continues with significant pain in his right long finger. Denies numbness or tingling. Denies chest pain, shortness of breath, nausea or vomiting. Objective Data Objective Data Vital Signs: Vital Signs Temp Pulse Resp BP Pulse Ox O2 Del Method 100 F H 80 18 118/60 95 Room Air 11/22/22 01:57 11/22/22 01:57 11/22/22 01:57 11/22/22 01:57 11/22/22 01:57 11/22/22 01:57 Oxygen Delivery Method Room Air Weight: 172 lb 13.478 oz Body Mass Index (BMI) 25.5 Intake & Output: Intake and Output for Last 24 Hours 11/20/22 11/21/22 11/22/22 23:59 23:59 23:59 Intake Total 3590 / 3590 1197.08 / 1197.08 Balance 3590 / 3590 1197.08 / 1197.08 Lab / Micro Data 11/21/22 15:20 11/21/22 15:20 Labs: Laboratory Results - last 24 hr 11/21/22 15:20: WBC 28.3 H, RBC 4.59 L, Hgb 13.3, Hct 37.0 L, MCV 80.6, MCH 29.0, MCHC 35.9, RDW Std Deviation 36.4, RDW Coeff of Praveen 12.6, Plt Count 178, MPV 10.0, Immature Gran % (Auto) 0.700, Neut % (Auto) 83.8 H, Lymph % (Auto) 6.0 L, [place] % (Auto) 9.3, Eos % (Auto) 0.0, Baso % (Auto) 0.2, Absolute Neuts (auto) 23.7 H, Absolute Lymphs (auto) 1.71, Nucleated RBC % 0, Differential Comment SCANNED, Diff Path Review July, Sodium 132 L, Potassium 3.6, Chloride 99, Carbon Dioxide 21.0, Anion Gap 12, BUN 75 H, Creatinine 2.98 H, Estim Creat Juanita r Calc 33.94, Est GFR (MDRD) Af Amer 31 L, Est GFR (MDRD) Non-Af 25 L, BUN/Creatinine Ratio 25.2 H, Glucose 126 H, Calcium 8.6, Total Bilirubin 1.50 H, Direct Bilirubin 0.63 H, AST 668 H, ALT 267 H, Alkaline Phosphatase 88, Total Protein 7.6, Albumin 3.6, Globulin 4.0 11/21/22 16:55: S.aureus Protein A PCR POSITIVE H, MRSA (PCR) Negative 11/21/22 17:07: Hep Bs Antigen Non-Reactive, Hep Bs Antibody Reactive, Hepatitis C Antibody Reactive, HIV 1&2 Antibody Non-Reactive 11/21/22 17:17: HCV RNA (PCR) Method Cancelled, HCV RNA Quant (PCR) Cancelled, HCV RNA (PCR) IU log10 Cancelled, HCV RNA (PCR) log10 Cancelled, HCV RNA PCR Test Info Cancelled, Hepatitis C RNA Comment Cancelled, Hep C Genotype (PCR) Cancelled 11/21/22 18:00: Lactic Acid 0.7 Radiography Diagnostic Testing: Radiology Impression Hand X-Ray 11/21/22 13:32 IMPRESSION: Diffuse soft tissue swelling. No fracture is seen. Electronically Signed: Rishi Dinero MD at 14:36 EDT , Physical Exam Narrative General - A&Ox3, NAD. VSS/AF. Right upper Extremity - SILT & 5/5 in radial, ulnar, musculocutaneous, axillary, and median nerve distributions. Radial, ulnar pulses 2+. Compartments soft and compressible. BCR in finger tips. Sanguinous drainage noted on dressing. Swelling appears slightly improved in the right long finger. No expressible drainage from incisions. Lymphangitic streaking is stable. Left upper extremity- SILT & 5/5 in radial, ulnar, musculocutaneous, axillary, and median nerve distributions. Radial, ulnar pulses 2+. Compartments soft and compressible. BCR in finger tips. Swelling about the DIP joint left index finger without fluctuance. No subcutaneous purulence. Assessment & Plan Assessment/Plan (1) Flexor tenosynovitis of finger: PLAN: POD#1 s/p bedside I&D right long finger - Pain control - Medicine following for medical management -Cultures pending -Continue antibiotics -Start soap water soaks 3 times daily x15 minutes, dry sterile dressing changes as needed - DVT PPX -per primary -Diet ordered this morning, n.p.o. after midnight for possible I&D tomorrow (2) Franko: PLAN: Continue antibiotics. Appears stable, perhaps slightly improved with antibiotic therapy Possible I&D tomorrow if no improvement
[2022-11-22 07:54] LABS: Absolute Lymphocyte Count 1.43 X10^3/uL (0.83-4.51); Absolute Neutrophil Count 14.6 X10^3/uL (2.0-7.7); Basophil# 0.04 X10^3/uL; Basophil% 0.2 % (0-1); Eosinophil# 0.02 X10^3/uL; Eosinophils% 0.1 % (0-5); Hematocrit 33.1 % (40-54); Hemoglobin 11.1 g/dL (13.0-16.5); Lymphocyte # 1.43 X10^3/ul (0.83-4.51); Lymphocyte % 8.1 % (19-41); Mean Corp Hgb Conc 33.5 g/dL (32-36); Mean Corpuscular Hgb 28.1 pg (27.0-32.0); Mean Corpuscular Volume 83.8 fL (80-94); Mean Platelet Vol. 9.8 fl (6.2-12.0); Monocyte% 7.4 % (0-10); NRBC Flagged by Analyzer 0 % (0-5); Neutrophil % 82.8 % (47-70); Platelet Count 125 K/mm3 (150-450); RBC Distribution Width CV 12.8 % (11.6-14.6); RBC Distribution Width SD 39.4 fl (35.1-43.9); Red Blood Count 3.95 M/mm3 (4.6-6.2); White Blood Count 17.6 K/mm3 (4.4-11.0)
[2022-11-22 08:18] LABS: ALB/GLOB Ratio 0.7 RATIO (0.9-2.4); AST(SGOT) 414 U/L (15-37); Alanine Aminotransfer ALT/SGPT 218 U/L (16-61); Albumin, Serum 2.4 g/dL (3.2-5.0); Alkaline Phosphatase 62 U/L (45-117); Anion Gap 4 (5-15); BUN 34 mg/dL (7-18); BUN/Creat Ratio 36.3 RATIO (10-20); Calcium,Total 7.3 mg/dL (8.5-10.1); Chloride 111 mmol/L (98-107); Creatinine, Serum 0.94 mg/dL (0.70-1.30); EST Glomerular Filtration Rate 96 mL/min (>60); Est Glom Filt Rate - Afr Amer 116 mL/min (>60); Globulin 3.4 g/dL (2.2-4.2); Glucose 119 mg/dL (74-106); Potassium 3.8 mmol/L (3.5-5.1); Protein, Total 5.8 g/dL (6.4-8.2); Sodium Level 138 mmol/L (136-145)
[2022-11-22] MEDS: BMX LIQUID 180 ML 15 ML PO ×3 (08:30→16:27)
[2022-11-22] MEDS: oxyCODONE 5 MG Tablet PO ×4 (08:38→22:55)
[2022-11-22 09:00] VITALS: BP 108/65; PULSE 72; RESP 18; TEMP 37.1; O2SAT 97
--- NOTE | 2022-11-22 09:39 | PCM.RX.CS ---
Consult Antibiotic Management Pharmacy has been consulted to manage selected antiobiotic: Vancomycin Type of Intervention Type of Consult: Follow-up Prior Doses of Antibiotics Prior Doses of Antibiotics Received/Current Regimen: 2GM IV X 1 ON 11.22.22 Labs Labs: Sodium 138 mmol/L (136-145) 11/22/22 07:35 Potassium 3.8 mmol/L (3.5-5.1) 11/22/22 07:35 Chloride 111 mmol/L (98-107) H 11/22/22 07:35 Carbon Dioxide 23.0 mmol/L (21.0-32.0) 11/22/22 07:35 Anion Gap 4 (5-15) L 11/22/22 07:35 BUN 34 mg/dL (7-18) H 11/22/22 07:35 Creatinine 0.94 mg/dL (0.70-1.30) 11/22/22 07:35 Est GFR (MDRD) Af Amer 116 mL/min (>60) 11/22/22 07:35 Est GFR (MDRD) Non-Af 96 mL/min (>60) 11/22/22 07:35 BUN/Creatinine Ratio 36.3 RATIO (10-20) H 11/22/22 07:35 Glucose 119 mg/dL (74-106) H 11/22/22 07:35 Dosing Weight Weight used for dosin kg Estimated Creatinine Clearance Estimated Creatinine Clearance: >100ml/min Goal Trough Goal Trough: 15-20 mcg/mL Pharmacy Plan for Drug Dosing Pharmacy Plan for Drug Dosing: Renal function improved fro Cr 2.98 to 0.94. Recommend changing dose to 1000mg iv q8h. Trough level ordered for before 4th total dose. Pharmacy Service will continue to monitor and adjust dosing as required. Follow-Up Labs Follow-Up Labs: Trough: Vancomycin (11.23.22 0130 before 0200 dose)
--- NOTE | 2022-11-22 09:47 | NURSING ---
no iv vanc on unit for this pt
[2022-11-22 09:57] LABS: Amphetamine Urine VISTA POSITIVE (<1000 ng/mL); Barbiturate Urine VISTA NEGATIVE (< 200 ng/mL); Benzodiazepine Urine VISTA NEGATIVE (< 200 ng/mL); Cocaine Urine VISTA NEGATIVE (< 300 ng/mL); Ecstacy Urine VISTA NEGATIVE (< 500 ng/mL); Methadone Urine VISTA NEGATIVE (< 300 ng/mL); PCP Urine VISTA NEGATIVE (< 25 ng/mL); THC Urine VISTA NEGATIVE (< 50 ng/mL); Vista UDS pH Range 6
[2022-11-22] MEDS: Vancomycin IV 1,000 MG/200 ML BAG 200 MG IV ×2 (10:26→17:54)
--- NOTE | 2022-11-22 11:05 | CASEMGMT ---
Addendum entered by Anita Shelby 11/22/22 15:30: MOHIT STRINGER back into pt room, pt fiance present. She states she would be able and willing to complete dressing changes if need be. She states she would feel comfortable if shown by nurse. Addendum entered by Anita Shelby 11/22/22 13:22: MOHIT STRINGER Face to Face with patient for initial transition planning/care coordination assessment. MOHIT STRINGER introduced self and role at [facility]. Patient lying in bed, alert and oriented. Patient willing to participate in assessment and is able to answer all questions. Care providers, pharmacy, and demographics verified. Patient wishes to discharge home. Pt does not want any HHC. He states he does not want his dressing changed. He is agreeable to MOHIT STRINGER speaking to his fiance about dressing changes should he need upon dc. Patient states he has no further needs or concerns at this time. CM to follow for discharge planning needs that may arise. PCP:None, pt declined pamphlet of local healthcare providers Specialists:None Preferred Pharmacy:[facility] Insurance:[facility] Prescription Benefit: yes LNOK:Vi Taylor, motherl; Gabriel Taylor, father Living Arrangements:Pt lives with mother in a mobile home with no steps to enter. Pt reports he is I in ADLs and denies concerns at home. Transportation: Pt does not drive. States friends and family transport him if needed. DME:Denies HHC:Denies hx of SNF:Denies hx of Disposition Plan:Home Original Note: MOHIT STRINGER attempted assessment, pt fiance in room, pt unable to stay awake to answer questions. MOHIT STRINGER to come back at a later time.
--- NOTE | 2022-11-22 12:09 | EKG12_ITS ---
Test Reason : pre op Blood Pressure : / mmHG Vent. Rate : 083 BPM Atrial Rate : 083 BPM P-R Int : 142 ms QRS Dur : 078 ms QT Int : 362 ms P-R-T Axes : 059 004 032 degrees QTc Int : 425 ms Normal sinus rhythm Normal ECG When compared with ECG of 14-SEP-2022 11:23, No significant change was found Confirmed by DAYAN BULLOCK, MATTHEW ([id number]), news copy editor FELIPE TRIPATHI ([id number]) on 12/11/2022 11:26:52 AM Referred By: Confirmed By:MATTHEW HANLEY MD
[2022-11-22 14:15] VITALS: BP 131/87; PULSE 90; RESP 18; TEMP 36.8; O2SAT 96
--- NOTE | 2022-11-22 14:17 | NURSING ---
PT REFUSING HAND SOAKS ORDERED PER DR CAIN
--- NOTE | 2022-11-22 14:24 | CHAPLAIN ---
Type of Pastoral Visit _x__ Initial Visit ___ Follow-up Visit ___ On-call Visit ___ General Patient Visit ___ Spiritual Assessment ___ Family Conference ___ Bereavement ___ Rapid Response ___ Code Blue ___ Other (describe below) Pastoral Care Referral From _x__ Patient ___ Family ___ Nurse ___ Physician ___ Technical Support Consultant ___ Marine Steam Fitter ___ Other (describe below) Sacrament/Intervention ___ Active listening ___ Anointing ___ Faith ___ Bereavement ___ Communion ___ Elenita exploration ___ ___ Life review ___ Prayer ___ Reconciliation ___ Sacrament of Sick _x__ Supportive presence ___ Wedding ___ Other (describe below) Pastoral Comments several open ended questions and offers of presence and support given to patient; pt repeats that he is fine thank you and I'm okay and thank you
--- NOTE | 2022-11-22 14:45 | PN_ITS ---
Subjective Subjective Patient seen and examined. Girlfriend was by his bedside. Patient was resting but when touching his left middle finger, he woke up and screamed in pain. Complain of pain in the left middle finger. He had had I&D on the right hand yesterday on admission. He denies any fever or chills and review of systems otherwise negative. Objective Data Objective Data Vital Signs: Vital Signs Temp Pulse Resp BP Pulse Ox O2 Del Method 98.3 F 90 18 131/87 H 96 Room Air 11/22/22 14:15 11/22/22 14:15 11/22/22 14:15 11/22/22 14:15 11/22/22 14:15 11/22/22 14:15 Oxygen Delivery Method Room Air Weight: 172 lb 13.478 oz Body Mass Index (BMI) 25.5 Intake & Output: Intake and Output for Last 24 Hours 11/20/22 11/21/22 11/22/22 23:59 23:59 23:59 Intake Total 3590 / 3590 1447.08 / 1447.08 Balance 3590 / 3590 1447.08 / 1447.08 Lab / Micro Data 11/22/22 07:35 11/22/22 07:35 Labs: Laboratory Results - last 24 hr 11/21/22 15:20: WBC 28.3 H, RBC 4.59 L, Hgb 13.3, Hct 37.0 L, MCV 80.6, MCH 29.0, MCHC 35.9, RDW Std Deviation 36.4, RDW Coeff of Praveen 12.6, Plt Count 178, MPV 10.0, Immature Gran % (Auto) 0.700, Neut % (Auto) 83.8 H, Lymph % (Auto) 6.0 L, Webb % (Auto) 9.3, Eos % (Auto) 0.0, Baso % (Auto) 0.2, Absolute Neuts (auto) 23.7 H, Absolute Lymphs (auto) 1.71, Nucleated RBC % 0, Differential Comment SCANNED, Diff Path Review July, Sodium 132 L, Potassium 3.6, Chloride 99, Carbon Dioxide 21.0, Anion Gap 12, BUN 75 H, Creatinine 2.98 H, Estim Creat Clear Calc 33.94, Est GFR (MDRD) Af Amer 31 L, Est GFR (MDRD) Non-Af 25 L, BUN/Creatinine Ratio 25.2 H, Glucose 126 H, Calcium 8.6, Total Bilirubin 1.50 H, Direct Bilirubin 0.63 H, AST 668 H, ALT 267 H, Alkaline Phosphatase 88, Total Protein 7.6, Albumin 3.6, Globulin 4.0 11/21/22 16:55: S.aureus Protein A PCR POSITIVE H, MRSA (PCR) Negative 11/21/22 17:07: Hep Bs Antigen Non-Reactive, Hep Bs Antibody Reactive, Hepatitis C Antibody Reactive, HIV 1&2 Antibody Non-Reactive 11/21/22 17:17: HCV RNA (PCR) Method Cancelled, HCV RNA Quant (PCR) Cancelled, HCV RNA (PCR) IU log10 Cancelled, HCV RNA (PCR) log10 Cancelled, HCV RNA PCR Test Info Cancelled, Hepatitis C RNA Comment Cancelled, Hep C Genotype (PCR) Cancelled 11/21/22 18:00: Lactic Acid 0.7 11/22/22 07:35: WBC 17.6 H, RBC 3.95 L, Hgb 11.1 L, Hct 33.1 L, MCV 83.8, MCH 28.1, MCHC 33.5 D, RDW Std Deviation 39.4, RDW Coeff of Praveen 12.8, Plt Count 125 L, MPV 9.8, Immature Gran % (Auto) 1.400 H, Neut % (Auto) 82.8 H, Lymph % (Auto) 8.1 L, Webb % (Auto) 7.4, Eos % (Auto) 0.1, Baso % (Auto) 0.2, Absolute Neuts (auto) 14.6 H, Absolute Lymphs (auto) 1.43, Nucleated RBC % 0, Sodium 138, Potassium 3.8, Chloride 111 H, Carbon Dioxide 23.0, Anion Gap 4 L, BUN 34 H, Creatinine 0.94, Estim Creat Clear Calc 107.60, Est GFR (MDRD) Af Amer 116, Est GFR (MDRD) Non-Af 96, BUN/Creatinine Ratio 36.3 H, Glucose 119 H, Calcium 7.3 L, Total Bilirubin 0.60, AST 414 H, ALT 218 H, Alkaline Phosphatase 62, Total Protein 5.8 L, Albumin 2.4 L, Globulin 3.4, Albumin/Globulin Ratio 0.7 L 11/22/22 09:15: Urine Opiates Screen POSITIVE H, Urine Methadone Screen NEGATIVE, Ur Barbiturates Screen NEGATIVE, Ur Phencyclidine Scrn NEGATIVE, Ur Amphetamines Screen POSITIVE H, MDMA (Ecstasy) Screen NEGATIVE, U Benzodiazepines Scrn NEGATIVE, Urine Cocaine Screen NEGATIVE, U Cannabinoids Screen NEGATIVE, Ur Drug Screen Comment Micro: Microbiology 11/21/22 16:55 Wound - Arm Right Gram Stain - Final 11/21/22 16:55 Wound - Arm Right Wound Culture - Preliminary Beta streptococcus Physical Exam Const alert, oriented x3 and no apparent distress General Appearance: cooperative HEENT normocephalic, head/scalp atraumatic, moist oral mucous membranes and oropharynx normal Eyes EOMs intact bilaterally Neck no lymphadenopathy, supple and no JVD Lymph Lymphatic: no lymphadenopathy noted and no lymphedema noted Resp normal respiratory effort, normal air movement and clear to auscultation bilaterally Cardio regular rate, regular rhythm, S1 normal heart sound, S2 normal heart sound and no murmurs GI normal to inspection, nondistended, normoactive bowel sounds, soft to palpation, non-tender and non-distended Extremity Extremity Narrative: Right hand wrapped in bandage. LEft index finger is diffusely swollen, erythematous, very tender to touch and movement, moderate differential warmth. Unable to fully flex finger Skin Skin Narrative: as under extremities. also has an erythematous area over right inner arm, which is outlined. Neuro CN's II-XII intact bilaterally, no focal motor deficits and no sensory deficits noted Motor Exam: strength 5/5 throughout Psych thought process normal and cooperative Appearance: appropriate Assessment & Plan Assessment/Plan (1) Leukocytosis: (2) Flexor tenosynovitis of finger: (3) VENECIA (acute kidney injury): (4) Felon of finger: PLAN: Plan #Acute flexor tenosynovitis of the right middle finger and a feeling of the left index finger * Had I&D of the right middle finger. Awaiting I&D of the left index finger today. * On IV vancomycin and Rocephin. Orthopedic surgery on board. * P.o. Tylenol and oxycodone as needed for pain. * WBC is elevated at 17.6 that is trended down from 28.3 on admission. * Staph aureus PCR positive but MRSA screen negative. We will therefore switch to IV cefazolin. * X-ray of the left hand showed diffuse soft tissue swelling. * Wound cultures growing beta Streptococcus. * #VENECIA: Creatinine 2.98. No baseline known. Hydrate with fluids and trend. #Resolved and creatinine is down to 0.94. #History of polysubstance abuse. Previously known to use methamphetamines. Urine screen for drugs was positive for opiates and amphetamines. #Nicotine dependence: Counseled to quit. Nicotine patch if needed. #Thrombocytopenia: Platelets are down to 125. Was 178 yesterday. May be hem odilutional due to fluids that he received. Will monitor. #Asthma: Not in exacerbation. Albuterol. DVT prophylaxis; SCDs Charges/Coding Visit Charges Inpatient E&M: 70561 Subs Hosp L3
[2022-11-22] MEDS: Acetaminophen 325 MG Tablet 650 MG PO ×2 (16:27→22:55)
[2022-11-22 22:01] VITALS: BP 113/79; PULSE 91; RESP 16; TEMP 37.8; O2SAT 94
[2022-11-22] MEDS: Temazepam 15 MG Capsule PO (22:54)
[2022-11-23 02:06] LABS: International Normalized Ratio 1.3; Prothrombin Time (Protime)PT. 15.9 SECONDS (11.7-14.9); Vancomycin, Trough Level 10.4 ug/mL (5.0-15.0)
[2022-11-23 02:07] LABS: AST(SGOT) 250 U/L (15-37); Alanine Aminotransfer ALT/SGPT 198 U/L (16-61); Albumin, Serum 2.2 g/dL (3.2-5.0); Alkaline Phosphatase 58 U/L (45-117); Bilirubin, Direct 0.16 mg/dL (0.00-0.30); Globulin 3.3 g/dL (2.2-4.2); Partial Thromboplast Time 35.2 Seconds (24.1-36.2); Protein, Total 5.5 g/dL (6.4-8.2)
[2022-11-23 02:08] LABS: Absolute Neutrophil Count 9.9 X10^3/uL (2.0-7.7); Anion Gap 3 (5-15); BUN 17 mg/dL (7-18); Basophil# 0.05 X10^3/uL; Basophil% 0.4 % (0-1); Calcium,Total 7.4 mg/dL (8.5-10.1); Chloride 108 mmol/L (98-107); Creatinine, Serum 0.74 mg/dL (0.70-1.30); EST Glomerular Filtration Rate 126 mL/min (>60); Eosinophil# 0.09 X10^3/uL; Eosinophils% 0.7 % (0-5); Est Glom Filt Rate - Afr Amer 153 mL/min (>60); Estimated Creatinine Clearance 136.68 ml/min; Glucose 119 mg/dL (74-106); Hematocrit 31.4 % (40-54); Hemoglobin 10.4 g/dL (13.0-16.5); Lymphocyte % 13.1 % (19-41); Mean Corp Hgb Conc 33.1 g/dL (32-36); Mean Corpuscular Hgb 27.9 pg (27.0-32.0); Mean Corpuscular Volume 84.2 fL (80-94); Mean Platelet Vol. 10.1 fl (6.2-12.0); Monocyte# 1.13 X10^3/uL; Monocyte% 8.7 % (0-10); NRBC Flagged by Analyzer 0 % (0-5); Neutrophil # 9.88 X10^3/uL (2.7-7.7); Neutrophil % 76.3 % (47-70); Platelet Count 124 K/mm3 (150-450); Potassium 3.4 mmol/L (3.5-5.1); RBC Distribution Width CV 12.8 % (11.6-14.6); RBC Distribution Width SD 38.6 fl (35.1-43.9); Red Blood Count 3.73 M/mm3 (4.6-6.2); Sodium Level 138 mmol/L (136-145)
[2022-11-23] MEDS: Vancomycin HCl 1,250 MG in 0.9% Normal Saline (250mL Bag) 250 ML 167 MG IV ×3 (02:34→18:14)
--- NOTE | 2022-11-23 02:42 | PCM.RX.CS ---
Consult Antibiotic Management Pharmacy has been consulted to manage selected antiobiotic: Vancomycin Type of Intervention Type of Consult: Follow-up Labs Labs: Sodium 138 mmol/L (136-145) 11/23/22 01:35 Potassium 3.4 mmol/L (3.5-5.1) L 11/23/22 01:35 Chloride 108 mmol/L (98-107) H 11/23/22 01:35 Carbon Dioxide 27.0 mmol/L (21.0-32.0) 11/23/22 01:35 Anion Gap 3 (5-15) L 11/23/22 01:35 BUN 17 mg/dL (7-18) 11/23/22 01:35 Creatinine 0.74 mg/dL (0.70-1.30) 11/23/22 01:35 Est GFR (MDRD) Af Amer 153 mL/min (>60) 11/23/22 01:35 Est GFR (MDRD) Non-Af 126 mL/min (>60) 11/23/22 01:35 BUN/Creatinine Ratio 23.0 RATIO (10-20) H 11/23/22 01:35 Glucose 119 mg/dL (74-106) H 11/23/22 01:35 Vancomycin Trough 10.4 ug/mL (5.0-15.0) 11/23/22 01:35 Microbiology Microbiology: Microbiology 11/21/22 16:55 Wound - Arm Right Gram Stain - Final 11/21/22 16:55 Wound - Arm Right Wound Culture - Preliminary Beta streptococcus Goal Trough Goal Trough: 15-20 mcg/mL Pharmacy Plan for Drug Dosing Pharmacy Plan for Drug Dosing: Pharmacy Service will continue to monitor and adjust dosing as required. TROUGH 10.4 @ 7.5 HOURS. INCREASE TO 1250MG Q8H AND DRAW TROUGH PRIOR TO 4TH DOSE Follow-Up Labs Follow-Up Labs: Trough: Vancomycin Date/Time Labs Ordered Labs to be done on [date and time ordered]: 11/24 @ 0200
[2022-11-23 03:38] VITALS: BP 106/67; PULSE 64; RESP 15; TEMP 36.8; O2SAT 95
[2022-11-23] MEDS: Morphine 2 MG/ML Syringe 4 MG IV ×4 (03:39→21:03)
[2022-11-23] MEDS: BMX LIQUID 180 ML 15 ML PO ×2 (03:41→08:02)
[2022-11-23 06:00] VITALS: BMI 25.5
--- NOTE | 2022-11-23 07:39 | NURSING ---
Patient refused soaking hand throughout night and refused to have this nurse change his bandage and rewrap KAYLA wrap. Patient stated it would hurt too much for you to touch it.
[2022-11-23] MEDS: 0.9% Saline Lock 10 ML Syringe IV ×2 (07:48→21:03)
[2022-11-23] MEDS: HYDROmorphone 1 MG/ML Syringe IV (07:48)
[2022-11-23] MEDS: Lidocaine 1% /Epi 1:100 (20ml) 20 ML Vial INFILT (07:54)
[2022-11-23] MEDS: Potassium Chloride Oral Tablet 20 MEQ 40 MEQ PO (08:04)
--- NOTE | 2022-11-23 08:10 | PCM.PN.ORT ---
Subjective Subjective Patient seen and examined. Continues to complain of right upper extremity pain and left index finger pain. Denies any subjective fevers overnight. Denies nausea vomiting, chest pain or shortness of breath. Continues to complain of sore throat. Objective Data Objective Data Vital Signs: Vital Signs Temp Pulse Resp BP Pulse Ox O2 Del Method 98.2 F 64 15 106/67 95 Room Air 11/23/22 03:38 11/23/22 03:38 11/23/22 03:38 11/23/22 03:38 11/23/22 03:38 11/23/22 03:38 Oxygen Delivery Method Room Air Weight: 173 lb 1.006 oz Body Mass Index (BMI) 25.5 Intake & Output: Intake and Output for Last 24 Hours 11/21/22 11/22/22 11/23/22 23:59 23:59 23:59 Intake Total 3590 / 3590 2647.08 / 2647.08 275 / 275 Balance 3590 / 3590 2647.08 / 2647.08 275 / 275 Lab / Micro Data 11/23/22 01:35 11/23/22 01:35 Labs: Laboratory Results - last 24 hr 11/22/22 07:35: Sodium 138, Potassium 3.8, Chloride 111 H, Carbon Dioxide 23.0, Anion Gap 4 L, BUN 34 H, Creatinine 0.94, Estim Creat Clear Calc 107.60, Est GFR (MDRD) Af Amer 116, Est GFR (MDRD) Non-Af 96, BUN/Creatinine Ratio 36.3 H, Glucose 119 H, Calcium 7.3 L, Total Bilirubin 0.60, AST 414 H, ALT 218 H, Alkaline Phosphatase 62, Total Protein 5.8 L, Albumin 2.4 L, Globulin 3.4, Albumin/Globulin Ratio 0.7 L 11/22/22 09:15: Urine Opiates Screen POSITIVE H, Urine Methadone Screen NEGATIVE, Ur Barbiturates Screen NEGATIVE, Ur Phencyclidine Scrn NEGATIVE, Ur Amphetamines Screen POSITIVE H, MDMA (Ecstasy) Screen NEGATIVE, U Benzodiazepines Scrn NEGATIVE, Urine Cocaine Screen NEGATIVE, U Cannabinoids Screen NEGATIVE, Ur Drug Screen Comment 11/23/22 01:35: WBC 13.0 H, RBC 3.73 L, Hgb 10.4 L, Hct 31.4 L, MCV 84.2, MCH 27.9, MCHC 33.1, RDW Std Deviation 38.6, RDW Coeff of Praveen 12.8, Plt Count 124 L, MPV 10.1, Immature Gran % (Auto) 0.800, Neut % (Auto) 76.3 H, Lymph % (Auto) 13.1 L, [place] % (Auto) 8.7, Eos % (Auto) 0.7, Baso % (Auto) 0.4, Absolute Neuts (auto) 9.9 H, Absolute Lymphs (auto) 1.70, Nucleated RBC % 0, PT 15.9 H, INR 1.3, APTT 35.2, Sodium 138, Potassium 3.4 L, Chloride 108 H, Carbon Dioxide 27.0, Anion Gap 3 L, BUN 17, Creatinine 0.74, Estim Creat Clear Calc 136.68, Est GFR (MDRD) Af Amer 153, Est GFR (MDRD) Non-Af 126, BUN/Creatinine Ratio 23.0 H, Glucose 119 H, Calcium 7.4 L, Total Bilirubin 0.40, Direct Bilirubin 0.16, AST 250 H, ALT 198 H, Alkaline Phosphatase 58, Total Protein 5.5 L, Albumin 2.2 L, Globulin 3.3, Vancomycin Trough 10.4 Micro: Microbiology 11/21/22 16:55 Wound - Arm Right Gram Stain - Final 11/21/22 16:55 Wound - Arm Right Wound Culture - Preliminary Beta streptococcus Physical Exam Narrative General - A&Ox3, NAD. VSS/AF. Right upper Extremity - SILT & 5/5 in radial, ulnar, musculocutaneous, axillary, and median nerve distributions. Radial, ulnar pulses 2+. Compartments soft and compressible. BCR in finger tips. Sanguinous drainage noted on dressing. Swelling appears slightly improved in the right long finger. No expressible drainage from incisions. Lymphangitic streaking is stable, slightly improved. Left upper extremity- SILT & 5/5 in radial, ulnar, musculocutaneous, axillary, and median nerve distributions. Radial, ulnar pulses 2+. Compartments soft and compressible. BCR in finger tips. Volar pulp swelling left index finger with subcutaneous purulence. Assessment & Plan Assessment/Plan (1) Flexor tenosynovitis of finger: PLAN: POD#2 s/p bedside I&D right long finger - Pain control - Medicine following for medical management -Culture growing beta-hemolytic strep, sensitivities pending -Continue antibiotics - soap water soaks 3 times daily x15 minutes, dry sterile dressing changes as needed - DVT PPX -per primary -Diet ordered this morning, n.p.o. after midnight for possible repeat I&D tomorrow (2) Felon of finger: PLAN: Recommended bedside I&D today. Informed sent obtained. See procedure note to follow for details. Patient tolerated procedure well without complication. Swelling improved. We will start soaks with both hands today 3 times daily x15 minutes. Bilateral hand elevation recommended. Will follow
--- NOTE | 2022-11-23 08:13 | PCM.OPRPT ---
Report of Operation Date of Procedure: 11/23/22 Description of Surgical Findings:: Preoperative diagnosis: Left index finger felon Postoperative diagnosis: Left index finger felon Procedure: Incision and drainage left index finger Surgeon: Thomas Louis DO Anesthesia: Local Estimated blood loss: 10 cc IV fluids: None Packing/drains: None Specimen: None Complications: None apparent Indications: Left index finger felon, refractory to IV antibiotics Description of procedure: Informed sent obtained. Digital nerve block was administered with 8 cc 1% lidocaine with epinephrine 1: 100,000. Left index finger was then prepped and draped in normal, sterile orthopedic fashion. I confirmed anesthesia. An ulnar-sided mid axial incision was made overlying the area of subcutaneous purulence. Full-thickness skin incision was made with a 15 blade scalpel. Blunt dissection was was carried out within the finger pulp freeing any septations. Fluid was expressed, Mostly serosanguineous. The wound was left open to drainage. Sterile dressing applied. Patient tolerated procedure well without complication. We will initiate soaks this morning. Continue antibiotics.
[2022-11-23 08:25] VITALS: O2SAT 95
[2022-11-23] MEDS: Ceftriaxone 2 GM in 0.9% Normal Saline (50mL MB+) 50 ML IV (09:30)
[2022-11-23] MEDS: Acetaminophen 325 MG Tablet 650 MG PO ×2 (09:36→23:25)
[2022-11-23] MEDS: oxyCODONE 5 MG Tablet PO ×4 (09:37→23:25)
[2022-11-23 12:05] VITALS: BP 143/75; PULSE 82; RESP 16; TEMP 36.8; O2SAT 96
--- NOTE | 2022-11-23 12:12 | PCM.PROGNOTE ---
Subjective Subjective Patient seen and examined. Girlfriend was by his bedside. THe room smelled heavily of smoke. Girlfriend said she had gone out to smoke. He complained of seere pain in both arms. He had bedside I&D by orthopedics today. REview of systems is otherwise negative. Objective Data Objective Data Vital Signs: Vital Signs Temp Pulse Resp BP Pulse Ox O2 Del Method 98.2 F 82 16 143/75 H 96 Room Air 11/23/22 12:05 11/23/22 12:05 11/23/22 12:05 11/23/22 12:05 11/23/22 12:05 11/23/22 12:05 Oxygen Delivery Method Room Air Weight: 173 lb 1.006 oz Body Mass Index (BMI) 25.5 Intake & Output: Intake and Output for Last 24 Hours 11/21/22 11/22/22 11/23/22 23:59 23:59 23:59 Intake Total 3590 / 3590 2647.08 / 2647.08 325 / 325 Balance 3590 / 3590 2647.08 / 2647.08 325 / 325 Lab / Micro Data 11/23/22 01:35 11/23/22 01:35 Labs: Laboratory Results - last 24 hr 11/23/22 01:35: WBC 13.0 H, RBC 3.73 L, Hgb 10.4 L, Hct 31.4 L, MCV 84.2, MCH 27.9, MCHC 33.1, RDW Std Deviation 38.6, RDW Coeff of Praveen 12.8, Plt Count 124 L, MPV 10.1, Immature Gran % (Auto) 0.800, Neut % (Auto) 76.3 H, Lymph % (Auto) 13.1 L, [place] % (Auto) 8.7, Eos % (Auto) 0.7, Baso % (Auto) 0.4, Absolute Neuts (auto) 9.9 H, Absolute Lymphs (auto) 1.70, Nucleated RBC % 0, PT 15.9 H, INR 1.3, APTT 35.2, Sodium 138, Potassium 3.4 L, Chloride 108 H, Carbon Dioxide 27.0, Anion Gap 3 L, BUN 17, Creatinine 0.74, Estim Creat Clear Calc 136.68, Est GFR (MDRD) Af Amer 153, Est GFR (MDRD) Non-Af 126, BUN/Creatinine Ratio 23.0 H, Glucose 119 H, Calcium 7.4 L, Total Bilirubin 0.40, Direct Bilirubin 0.16, AST 250 H, ALT 198 H, Alkaline Phosphatase 58, Total Protein 5.5 L, Albumin 2.2 L, Globulin 3.3, Vancomycin Trough 10.4 Micro: Microbiology 11/21/22 16:55 Wound - Arm Right Gram Stain - Final 11/21/22 16:55 Wound - Arm Right Wound Culture - Final Streptococcus dysgalactiae equ Physical Exam Const alert, oriented x3 and no apparent distress Constitutional Narrative: uncomfortable due to pain General Appearance: cooperative HEENT normocephalic, head/scalp atraumatic, moist oral mucous membranes and oropharynx normal Eyes EOMs intact bilaterally Neck no lymphadenopathy, supple and no JVD Lymph Lymphatic: no lymphadenopathy noted and no lymphedema noted Resp normal respiratory effort, normal air movement and clear to auscultation bilaterally Cardio regular rate, regular rhythm, S1 normal heart sound, S2 normal heart sound and no murmurs GI normal to inspection, nondistended, normoactive bowel sounds, soft to palpation, non-tender and non-distended Extremity Extremity Narrative: Right hand markedly swollen, tense and tender. Has open wound in right index finger, with minimal visible drainage. Swelling, redness and erythema extends from right hand upwards over the inner forearm to the inner upper arm, very tender to touch. LEft index finger is diffusely swollen, erythematous, very tender to touch and movement, moderate differential warmth. Has open wound on left index finger at the margins due to I7D. Unable to fully flex finger Skin Skin Narrative: as under extremities. also has an erythematous area over right inner arm, which is outlined. Neuro CN's II-XII intact bilaterally, no focal motor deficits and no sensory deficits noted Motor Exam: strength 5/5 throughout Psych thought process normal and cooperative Appearance: appropriate Assessment & Plan Assessment/Plan (1) Leukocytosis: (2) Flexor tenosynovitis of finger: (3) VENECIA (acute kidney injury): (4) Felon of finger: PLAN: Plan #Acute flexor tenosynovitis of the right middle finger and a feeling of the left index finger Had I&D of the right middle finger. Had I&D of the left index finger today On IV vancomycin and Rocephin. Orthopedic surgery on board. wbc is down to 13 today. on IV vancomycin and zosyn Orthopedics on board. Orthopedics to have repeat I&D tomorrow. Staph aureus PCR positive but MRSA screen negative. We will therefore switch to IV cefazolin. X-ray of the left hand showed diffuse soft tissue swelling. Wound cultures growing beta Streptococcus. #VENECIA: Resolved #History of polysubstance abuse. Previously known to use methamphetamines. Urine screen for drugs was positive for opiates and amphetamines. #Nicotine dependence: Counseled to quit. Nicotine patch if needed. #Thrombocytopenia: Platelets are down to 124. was 125 yesterday. Will continue monitoring #Asthma: Not in exacerbation. Albuterol. DVT prophylaxis; SCDs Charges/Coding Visit Charges Inpatient E&M: 63643 [facility] Hosp L3
[2022-11-23] MEDS: NYSTATIN 500,000 UNIT/5 ML UDC 500000 UNIT PO ×3 (13:54→21:03)
--- NOTE | 2022-11-23 14:17 | CASEMGMT ---
Social Work SW spoke w/pt briefly about history of substance abuse. Pt not forthcoming with history. Pt states is okay, isn't using, and declined any resources. SW remains available should pt decide he would like resources or a referral. SHAWN Glover
[2022-11-23 21:00] VITALS: BP 116/69; PULSE 84; RESP 18; TEMP 37.5; O2SAT 96
[2022-11-23] MEDS: Temazepam 15 MG Capsule PO (23:25)
[2022-11-24] VITALS (11 sets, daily range): BP systolic 108–168; BP diastolic 60–96; PULSE 58–84; RESP 16–18; TEMP 36.3–38.1; O2SAT 93–98; BMI 26.1; BMI 26.2
[2022-11-24 02:20] LABS: Vancomycin, Trough Level 14.7 ug/mL (5.0-15.0)
--- NOTE | 2022-11-24 02:43 | PCM.RX.CS ---
Consult Antibiotic Management Pharmacy has been consulted to manage selected antiobiotic: Vancomycin Type of Intervention Type of Consult: Follow-up Labs Labs: Sodium 138 mmol/L (136-145) 11/23/22 01:35 Potassium 3.4 mmol/L (3.5-5.1) L 11/23/22 01:35 Chloride 108 mmol/L (98-107) H 11/23/22 01:35 Carbon Dioxide 27.0 mmol/L (21.0-32.0) 11/23/22 01:35 Anion Gap 3 (5-15) L 11/23/22 01:35 BUN 17 mg/dL (7-18) 11/23/22 01:35 Creatinine 0.74 mg/dL (0.70-1.30) 11/23/22 01:35 Est GFR (MDRD) Af Amer 153 mL/min (>60) 11/23/22 01:35 Est GFR (MDRD) Non-Af 126 mL/min (>60) 11/23/22 01:35 BUN/Creatinine Ratio 23.0 RATIO (10-20) H 11/23/22 01:35 Glucose 119 mg/dL (74-106) H 11/23/22 01:35 Vancomycin Trough 14.7 ug/mL (5.0-15.0) 11/24/22 01:50 Microbiology Microbiology: Microbiology 11/21/22 16:55 Wound - Arm Right Gram Stain - Final 11/21/22 16:55 Wound - Arm Right Wound Culture - Final Streptococcus dysgalactiae equ Pharmacy Plan for Drug Dosing Pharmacy Plan for Drug Dosing: Pharmacy Service will continue to monitor and adjust dosing as required. TROUGH 14.7 @ 7.5 HRS. NO CHANGES, FOLLOW UP TROUGH IN 2 DAYS Follow-Up Labs Follow-Up Labs: Trough: Vancomycin Date/Time Labs Ordered Labs to be done on [date and time ordered]: 11/26 @ 0200
[2022-11-24] MEDS: Vancomycin HCl 1,250 MG in 0.9% Normal Saline (250mL Bag) 250 ML 167 MG IV ×2 (02:47→10:00)
[2022-11-24] MEDS: Morphine 2 MG/ML Syringe 4 MG IV ×4 (04:18→20:46)
[2022-11-24] MEDS: 0.9% Saline Lock 10 ML Syringe IV ×3 (04:21→20:45)
[2022-11-24 06:10] LABS: Absolute Lymphocyte Count 1.69 X10^3/uL (0.83-4.51); Absolute Neutrophil Count 5.5 X10^3/uL (2.0-7.7); Basophil# 0.02 X10^3/uL; Basophil% 0.2 % (0-1); Eosinophil# 0.16 X10^3/uL; Hematocrit 31.1 % (40-54); Hemoglobin 10.3 g/dL (13.0-16.5); Lymphocyte # 1.69 X10^3/ul (0.83-4.51); Lymphocyte % 20.8 % (19-41); Mean Corp Hgb Conc 33.1 g/dL (32-36); Mean Corpuscular Hgb 28.4 pg (27.0-32.0); Mean Corpuscular Volume 85.7 fL (80-94); Mean Platelet Vol. 10.1 fl (6.2-12.0); Monocyte# 0.67 X10^3/uL; Monocyte% 8.2 % (0-10); NRBC Flagged by Analyzer 0 % (0-5); Neutrophil # 5.54 X10^3/uL (2.7-7.7); Neutrophil % 68.1 % (47-70); Platelet Count 140 K/mm3 (150-450); RBC Distribution Width CV 12.7 % (11.6-14.6); RBC Distribution Width SD 39.4 fl (35.1-43.9); Red Blood Count 3.63 M/mm3 (4.6-6.2); White Blood Count 8.1 K/mm3 (4.4-11.0)
[2022-11-24 06:29] LABS: Anion Gap 3 (5-15); BUN 11 mg/dL (7-18); BUN/Creat Ratio 19.1 RATIO (10-20); Calcium,Total 7.3 mg/dL (8.5-10.1); Chloride 107 mmol/L (98-107); Creatinine, Serum 0.58 mg/dL (0.70-1.30); EST Glomerular Filtration Rate 168 mL/min (>60); Est Glom Filt Rate - Afr Amer 203 mL/min (>60); Estimated Creatinine Clearance 174.38 ml/min; Glucose 102 mg/dL (74-106); Potassium 3.3 mmol/L (3.5-5.1); Sodium Level 139 mmol/L (136-145)
[2022-11-24] MEDS: Ceftriaxone 2 GM in 0.9% Normal Saline (50mL MB+) 50 ML IV (09:14)
--- NOTE | 2022-11-24 09:57 | PN.ORTHO_ITS ---
Subjective Subjective Patient seen and examined. Continues with pain in the right long and left index fingers. Denies any fevers, chills, nausea vomiting, chest pain or shortness of breath. Reports minimal improvement in last 24 hours. Objective Data Objective Data Vital Signs: Vital Signs Temp Pulse Resp BP Pulse Ox O2 Del Method 99.1 F 72 16 115/67 96 Room Air 11/24/22 08:49 11/24/22 08:49 11/24/22 08:49 11/24/22 08:49 11/24/22 08:49 11/24/22 08:49 Oxygen Delivery Method Room Air Weight: 176 lb 12.972 oz Body Mass Index (BMI) 26.2 Intake & Output: Intake and Output for Last 24 Hours 11/22/22 11/23/22 11/24/22 23:59 23:59 23:59 Intake Total 2647.08 / 2647.08 875 / 875 275 / 275 Balance 2647.08 / 2647.08 875 / 875 275 / 275 Lab / Micro Data 11/24/22 05:15 11/24/22 05:15 Labs: Laboratory Results - last 24 hr 11/24/22 01:50: Vancomycin Trough 14.7 11/24/22 05:15: WBC 8.1, RBC 3.63 L, Hgb 10.3 L, Hct 31.1 L, MCV 85.7, MCH 28.4, MCHC 33.1, RDW Std Deviation 39.4, RDW Coeff of Praveen 12.7, Plt Count 140 L, MPV 10.1, Immature Gran % (Auto) 0.700, Neut % (Auto) 68.1, Lymph % (Auto) 20.8, [place] % (Auto) 8.2, Eos % (Auto) 2.0, Baso % (Auto) 0.2, Absolute Neuts (auto) 5.5, Absolute Lymphs (auto) 1.69, Nucleated RBC % 0, Sodium 139, Potassium 3.3 L , Chloride 107, Carbon Dioxide 29.0, Anion Gap 3 L, BUN 11, Creatinine 0.58 L, Estim Creat Clear Calc 174.38, Est GFR (MDRD) Af Amer 203, Est GFR (MDRD) Non-Af 168, BUN/Creatinine Ratio 19.1, Glucose 102, Calcium 7.3 L Micro: Microbiology 11/21/22 16:55 Wound - Arm Right Gram Stain - Final 11/21/22 16:55 Wound - Arm Right Wound Culture - Final Streptococcus dysgalactiae equ Physical Exam Narrative General - A&Ox3, NAD. VSS/AF. Right upper Extremity - SILT & 5/5 in radial, ulnar, musculocutaneous, axillary, and median nerve distributions. Radial, ulnar pulses 2+. Compartments soft and compressible. BCR in finger tips. Sanguinous drainage noted on dressing. Fusiform swelling present. Tenderness over the flexor tendon sheath in the palm. Pain with passive extension of the long finger. No expressible drainage from incisions. Lymphangitic streaking is stable. Pitting edema noted in the dorsum of the hand without induration or fluctuance. Left upper extremity- SILT & 5/5 in radial, ulnar, musculocutaneous, axillary, and median nerve distributions. Radial, ulnar pulses 2+. Compartments soft and compressible. BCR in finger tips. Volar pulp swelling left index finger, soft. Minimal sanguinous drainage from incision. Fusiform swelling is noted in the left index finger, tenderness over the flexor tendon sheath, pain with passive extension and pain with attempted flexion of the left index finger. Assessment & Plan Assessment/Plan (1) Flexor tenosynovitis of finger: PLAN: We are seeing minimal improvement with IV antibiotics status post bedside I&D of the right long finger. I recommended repeat incision and drainage of the right long finger in the operative suite today. The risks, benefits, alternatives to the procedure were reviewed with the patient at length and he agreed to proceed. Informed consent obtained. Continue antibiotics. (2) Felon of finger: PLAN: Postoperative day #1 status post left index felon I&D Patient is now displaying signs of flexor tenosynovitis of the left index finger as well. I recommended surgical intervention in the form of incision and drainage left index finger. The risks, benefits, alternatives to procedure reviewed with patient at length and he agreed to proceed.
[2022-11-24] MEDS: Bupivacaine Mpf 0.5% 30 ML VIAL (11:32)
--- NOTE | 2022-11-24 12:23 | OP.PCM_ITS ---
Report of Operation Date of Procedure: 11/24/22 Description of Surgical Findings:: Preoperative diagnosis: 1. Right long finger flexor tenosynovitis 2. Right long finger dorsal subcutaneous abscess 3. Left index finger felon 4. Left index finger flexor tenosynovitis 5. Suspected left index finger distal interphalangeal joint septic arthritis 6. Bilateral hand cellulitis Postoperative diagnosis: 1. Right long finger flexor tenosynovitis 2. Left index finger felon 3. Bilateral hand cellulitis Procedure: 1. Repeat incision and drainage right long finger flexor tendon sheath 2. Repeat incision and drainage right long finger dorsal subcutaneous abscess 3. Repeat left index finger felon incision and drainage 4. Left index finger distal interphalangeal joint irrigation and debridement 5. Left index finger flexor tendon sheath incision and drainage Surgeon: Thomas Louis DO Anesthesia: General LMA Anesthesiologist: Chavo Razo MD Estimated blood loss: 50 cc IV fluids: 1 L crystalloid Urine output: None recorded Specimen: None Packing/drains: None Implants: None Intraoperative findings: Seropurulent fluid within the right long finger finger flexor tendon sheath. No purulence noted right long finger dorsal subcutaneous abscess. Normal synovial fluid in right long finger PIP joint. Sanguinous fluid within left index finger volar finger pulp. No evidence of flexor tenosynovitis left index finger. Normal synovial fluid DIP joint left index finger. Preoperative indications: This is a 36-year-old male who was admitted on 11/20/2022 with lymphangitis, cellulitis and flexor tenosynovitis of his right long finger tracking up in his arm. A bedside I&D was performed day of admission by myself in the emergency department where seropurulent fluid was noted within the flexor tendon sheath. There was concern for dorsal finger abscess at that time to which was drained. Patient was started on IV antibiotics. Beta-hemolytic strep was cultured. An early felon was suspected in the left index finger. This did not respond to IV antibiotics and a bedside I&D of the left index finger felon was performed yesterday 11/23/2022. Patient has been noncompliant with elevation and soaks. There has been minimal improvement with the hands however lymphangitic streaking has improved dramatically. Patient was septic upon admission and his vitals have stabilized and white count has decreased. Due to the continued swelling both hands and positive exam findings concerning for flexor tenosynovitis of both the right long finger and left index finger, I recommended formal incision and drainage of both hands today. The risks, benefits, terms the procedure reviewed with the patient at length and he agreed to proceed. Risk included but were not limited to bleeding, flexion, loss of life or limb, need for additional surgery, persistent infection, tendon adhesions, tendon injury, neurovascular injury, persistent stiffness, risk of anesthesia. Patient expressed understanding of these risks and wished to proceed with surgery. Description of procedure: Patient identified in preoperative holding area by name, medical record number, and date of . The operative extremities were marked. All questions were answered to patient's satisfaction. At time of his procedure, patient brought to the operative suite and positioned supine a standard operating table with hand table was attached to both sides. General anesthesia was induced and LMA was placed. Both hands were prepped and draped in normal, sterile orthopedic fashion with Betadine. We performed timeout with all parties in attendance in agreement the side, site, operation be performed. No concerns were voiced and elected proceed with surgery. Patient was receiving scheduled ceftriaxone and vancomycin. I first my attention of the right hand. I reopened the dorsal skin incision overlying the PIP joint. I bluntly dissected in the subcutaneous field with a hemostat and did not encounter any purulence. Identified the interval between the lateral band and the central slip and made a small incision to enter the PIP joint via arthrotomy. Articular surface was identified. No significant fluid was encountered. This was thoroughly irrigated with normal saline solution in both the joint space and subcutaneous plane. I then loosely reapproximated this incision with 4-0 Prolene suture. I then turned my attention to the flexor tendon sheath. A longitudinal incision was made overlying the A1 keyonna. Full- thickness skin flaps were developed. A1 keyonna was then identified. A1 keyonna was released. Minimal seropurulent fluid was encountered. I then opened the A5 keyonna via transverse incision in the DIP joint. The A5 kyeonna was vented. I then passed a 16-gauge angiocatheter in the flexor tendon sheath through the A1 keyonna incision and irrigated approximately 200 cc of normal saline through the flexor tendon sheath. Clear fluid was noted immediately out the A5 keyonna. No purulence was encountered throughout the irrigation process. I then loosely reapproximated the incisions with interrupted simple 4-0 Prolene suture. I then turned my attention to the left hand. The felon I&D site was bluntly opened. Finger pulp was lightly debrided with a rongeur. I aggressively spread with the curved hemostat and did not encounter any purulence. I then made a longitudinal incision in line with the ulnar paronychia him along the distal interphalangeal joint. Skin flaps were developed down to the interval between the collateral ligament and the terminal extensor tendon. A 3 cm slip of joint capsule was excised. The joint was encountered. No significant effusion was noted. Both incisions were then thoroughly irrigated with normal saline solution. I loosely reapproximated both incisions with interrupted simple 4-0 Prolene suture. I then turned my attention to the flexor tendon sheath as patient did demonstrate signs of flexor tenosynovitis. A longitudinal incision was made overlying the A1 keyonna to the left index finger. A1 keyonna was encountered. A1 keyonna was opened. Flexor tendon sheath was opened. There was no significant fluid noted in the flexor tendon sheath. This wound was copiously irrigated in normal saline solution. The incision was closed loosely with interrupted 4-0 Prolene suture. Field blocks and digital nerve blocks were administered to both hands with 20 cc total of 0.5% plain bupivacaine. Patient tolerated procedure well without complication. He was safely extubated in the operative suite after loose dressings were applied to both involved fingers and hands. He was transferred to his hospital bed and subsequent to PACU in stable condition. Postoperative plan: Strict elevation both hands. Continue IV antibiotics. OT for range of motion and edema control. Maintain surgical dressing until tomorrow and restart soaks. Plan to remove stitches approximately 10 days postoperatively. I suspect patient will need at least 2 more days of IV antibiotics until we see dramatic improvement in clinical in signs of infection.
--- NOTE | 2022-11-24 14:52 | PN_ITS ---
Subjective Subjective Patient seen and examined. He had repeat I&D of the right long finger flexor tendon sheat and dorsal subcutaneous abscess as well as repeat left index finger felon I7D, and left index finger distal interphalangeal joint irrigation and debridement as well as flexor tendon sheath incision and drainage. Today is POD 0. Objective Data Objective Data Vital Signs: Vital Signs Temp Pulse Resp BP Pulse Ox O2 Del Method O2 Flow Rate 98.2 F 69 16 161/74 H 96 Room Air 3 11/24/22 13:06 11/24/22 13:06 11/24/22 13:06 11/24/22 13:06 11/24/22 13:06 11/24/22 13:06 11/24/22 12:15 Oxygen Flow Rate (L/min) 3 Oxygen Delivery Method Room Air Weight: 176 lb 12.972 oz Body Mass Index (BMI) 26.2 Intake & Output: Intake and Output for Last 24 Hours 11/22/22 11/23/22 11/24/22 23:59 23:59 23:59 Intake Total 2647.08 / 2647.08 875 / 875 600 / 600 Balance 2647.08 / 2647.08 875 / 875 600 / 600 Lab / Micro Data 11/24/22 05:15 11/24/22 05:15 Labs: Laboratory Results - last 24 hr 11/24/22 01:50: Vancomycin Trough 14.7 11/24/22 05:15: WBC 8.1, RBC 3.63 L, Hgb 10.3 L, Hct 31.1 L, MCV 85.7, MCH 28.4, MCHC 33.1, RDW Std Deviation 39.4, RDW Coeff of Praveen 12.7, Plt Count 140 L, MPV 10.1, Immature Gran % (Auto) 0.700, Neut % (Auto) 68.1, Lymph % (Auto) 20.8, [place] % (Auto) 8.2, Eos % (Auto) 2.0, Baso % (Auto) 0.2, Absolute Neuts (auto) 5.5, Absolute Lymphs (auto) 1.69, Nucleated RBC % 0, Sodium 139, Potassium 3.3 L , Chloride 107, Carbon Dioxide 29.0, Anion Gap 3 L, BUN 11, Creatinine 0.58 L, Estim Creat Clear Calc 174.38, Est GFR (MDRD) Af Amer 203, Est GFR (MDRD) Non-Af 168, BUN/Creatinine Ratio 19.1, Glucose 102, Calcium 7.3 L Micro: Microbiology 11/21/22 16:55 Wound - Arm Right Gram Stain - Final 11/21/22 16:55 Wound - Arm Right Wound Culture - Final Streptococcus dysgalactiae equ Physical Exam Const alert, oriented x3 and no apparent distress General Appearance: cooperative HEENT normocephalic, head/scalp atraumatic, moist oral mucous membranes and oropharynx normal Eyes EOMs intact bilaterally Neck no lymphadenopathy, supple and no JVD Lymph Lymphatic: no lymphadenopathy noted and no lymphedema noted Resp normal respiratory effort, normal air movement and clear to auscultation bilaterally Cardio regular rate, regular rhythm, S1 normal heart sound, S2 normal heart sound and no murmurs GI normal to inspection, nondistended, normoactive bowel sounds, soft to palpation, non-tender and non-distended Extremity Extremity Narrative: both arms wrapped in bandage Skin Skin Narrative: as under extremities Neuro CN's II-XII intact bilaterally, no focal motor deficits and no sensory deficits noted Motor Exam: strength 5/5 throughout Psych thought process normal and cooperative Appearance: appropriate Assessment & Plan Assessment/Plan (1) Leukocytosis: (2) Flexor tenosynovitis of finger: (3) VENECIA (acute kidney injury): (4) Felon of finger: PLAN: Plan #Acute flexor tenosynovitis of the right middle finger and a feeling of the left index finger * Had I&D of the right middle finger. Had I&D of the left index finger yesterday * had repeat I&D of the right long finger flexor tendon sheat and dorsal subcutaneous abscess as well as repeat left index finger felon I7D, and left index finger distal interphalangeal joint irrigation and debridement as well as flexor tendon sheath incision and drainage * today is POD 0 * On IV vancomycin and Rocephin. Orthopedic surgery on board. * wbc is down to 8.1. * on IV vancomycin and zosyn * Orthopedics on board. * Staph aureus PCR positive but MRSA screen negative. * will dC IV vancomycin and switch to ampicillin. * Wound cultures growing beta Streptococcus. * #VENECIA: Resolved #History of polysubstance abuse. Previously known to use methamphetamines. Urine screen for drugs was positive for opiates and amphetamines. #Nicotine dependence: Counseled to quit. Nicotine patch if needed. #Thrombocytopenia: platelets are up to 140 today. #Asthma: Not in exacerbation. Albuterol. DVT prophylaxis; SCDs Charges/Coding Visit Charges Inpatient E&M: 10046 Subs Hosp L2
[2022-11-24] MEDS: oxyCODONE 5 MG Tablet PO ×2 (18:30→22:51)
[2022-11-24] MEDS: Potassium Chloride Oral Tablet 20 MEQ 40 MEQ PO (18:32)
[2022-11-24] MEDS: NYSTATIN 500,000 UNIT/5 ML UDC 500000 UNIT PO ×2 (18:34→20:45)
[2022-11-24] MEDS: Vancomycin HCl 1,250 MG in 0.9% Normal Saline (250mL Bag) 250 ML 275 MG IV (18:36)
[2022-11-24] MEDS: Temazepam 15 MG Capsule PO (20:45)
[2022-11-24] MEDS: Acetaminophen 325 MG Tablet 650 MG PO (22:51)
[2022-11-25] MEDS: Morphine 2 MG/ML Syringe 4 MG IV ×2 (00:48→23:38)
[2022-11-25] MEDS: Vancomycin HCl 1,250 MG in 0.9% Normal Saline (250mL Bag) 250 ML 275 MG IV ×3 (02:45→18:19)
[2022-11-25 04:30] VITALS: BP 110/68; PULSE 62; RESP 18; TEMP 36.7; O2SAT 98
[2022-11-25] MEDS: oxyCODONE 5 MG Tablet PO ×5 (04:41→22:29)
[2022-11-25] MEDS: Acetaminophen 325 MG Tablet 650 MG PO ×5 (04:41→22:32)
[2022-11-25 06:52] LABS: Absolute Lymphocyte Count 1.71 X10^3/uL (0.83-4.51); Basophil# 0.02 X10^3/uL; Basophil% 0.3 % (0-1); Eosinophil# 0.19 X10^3/uL; Eosinophils% 2.8 % (0-5); Hematocrit 32.1 % (40-54); Hemoglobin 10.1 g/dL (13.0-16.5); Lymphocyte # 1.71 X10^3/ul (0.83-4.51); Lymphocyte % 25.6 % (19-41); Mean Corp Hgb Conc 31.5 g/dL (32-36); Mean Corpuscular Hgb 27.7 pg (27.0-32.0); Mean Corpuscular Volume 87.9 fL (80-94); Mean Platelet Vol. 9.6 fl (6.2-12.0); Monocyte# 0.66 X10^3/uL; Monocyte% 9.9 % (0-10); NRBC Flagged by Analyzer 0 % (0-5); Neutrophil # 4.04 X10^3/uL (2.7-7.7); Neutrophil % 60.4 % (47-70); Platelet Count 160 K/mm3 (150-450); RBC Distribution Width CV 12.5 % (11.6-14.6); RBC Distribution Width SD 40.5 fl (35.1-43.9); Red Blood Count 3.65 M/mm3 (4.6-6.2); White Blood Count 6.7 K/mm3 (4.4-11.0)
[2022-11-25 07:08] VITALS: O2SAT 96
[2022-11-25 07:17] LABS: Anion Gap 3 (5-15); BUN 10 mg/dL (7-18); BUN/Creat Ratio 17.9 RATIO (10-20); Calcium,Total 7.9 mg/dL (8.5-10.1); Chloride 110 mmol/L (98-107); Creatinine, Serum 0.56 mg/dL (0.70-1.30); EST Glomerular Filtration Rate 174 mL/min (>60); Est Glom Filt Rate - Afr Amer 210 mL/min (>60); Estimated Creatinine Clearance 174.73 ml/min; Glucose 106 mg/dL (74-106); Potassium 3.6 mmol/L (3.5-5.1); Sodium Level 142 mmol/L (136-145)
--- NOTE | 2022-11-25 08:18 | PCM.PN.HOSP ---
Reason for Visit Reason for Visit: Diagnoses Elevated white blood cell count, unspecified (11/21/22) Cellulitis of unspecified finger (11/21/22) Synovitis and tenosynovitis, unspecified (11/21/22) Acute kidney failure, unspecified (11/21/22) Subjective Subjective Patient lying in bed, reports pain in his hand after he was squeeze/examined earlier, overall feeling better Objective Data Objective Data Vital Signs: Vital Signs Temp Pulse Resp BP Pulse Ox O2 Del Method O2 Flow Rate 98.1 F 62 18 110/68 96 Room Air 3 11/25/22 04:30 11/25/22 04:30 11/25/22 04:30 11/25/22 04:30 11/25/22 07:08 11/25/22 07:08 11/24/22 12:15 Oxygen Flow Rate (L/min) 3 Oxygen Delivery Method Room Air Weight: 80.2 kg Body Mass Index (BMI) 26.2 Intake & Output: Intake and Output for Last 24 Hours 11/23/22 11/24/22 11/25/22 23:59 23:59 23:59 Intake Total 875 / 875 875 / 875 275 / 275 Balance 875 / 875 875 / 875 275 / 275 Lab / Micro Data 11/25/22 06:30 11/25/22 06:30 Labs: Laboratory Results - last 24 hr 11/25/22 06:30: WBC 6.7, RBC 3.65 L, Hgb 10.1 L, Hct 32.1 L, MCV 87.9, MCH 27.7, MCHC 31.5 L, RDW Std Deviation 40.5, RDW Coeff of Praveen 12.5, Plt Count 160, MPV 9.6, Immature Gran % (Auto) 1.000 H, Neut % (Auto) 60.4, Lymph % (Auto) 25.6, [place] % (Auto) 9.9, Eos % (Auto) 2.8, Baso % (Auto) 0.3, Absolute Neuts (auto) 4.0, Absolute Lymphs (auto) 1.71, Nucleated RBC % 0, Sodium 142, Potassium 3.6, Chloride 110 H, Carbon Dioxide 29.0, Anion Gap 3 L, BUN 10, Creatinine 0.56 L, Estim Creat Clear Calc 174.73, Est GFR (MDRD) Af Amer 210, Est GFR (MDRD) Non-Af 174, BUN/Creatinine Ratio 17.9, Glucose 106, Calcium 7.9 L Micro: Microbiology 11/21/22 16:55 Wound - Arm Right Gram Stain - Final 11/21/22 16:55 Wound - Arm Right Wound Culture - Final Streptococcus dysgalactiae equ Physical Exam Narrative General: Alert, oriented, no apparent distress HEENT: Atraumatic, normocephalic Eyes: Anicteric, normal conjunctiva, extraocular movements grossly intact Neck: Supple Respiratory: Clear to auscultation bilaterally, normal respiratory effort Cardiovascular: Regular rate and rhythm GI: Soft, nontender, nondistended Extremities: No edema Musculoskeletal: Moving all extremities Neuro: No overt focal neurological deficits Skin: Right hand wrapped, left index finger with erythema and stitches noted Psych: Superficially cooperative Assessment & Plan Assessment/Plan (1) Leukocytosis: (2) Flexor tenosynovitis of finger: (3) VENECIA (acute kidney injury): (4) Felon of finger: PLAN: Plan #Acute flexor tenosynovitis of the right middle finger and a feeling of the left index finger with dorsal subcutaneous abscess Had I&D of the right middle finger. Had I&D of the left index finger yesterday had repeat I&D of the right long finger flexor tendon sheath and dorsal subcutaneous abscess as well as repeat left index finger felon I7D, and left index finger distal interphalangeal joint irrigation and debridement as well as flexor tendon sheath incision and drainage 11/24 w/ Dr. Louis On IV vancomycin and Rocephin. Orthopedic surgery on board. wbc is down to 8.1. on IV vancomycin and zosyn Orthopedics on board. Staph aureus PCR positive but MRSA screen negative. will dC IV vancomycin and switch to ampicillin. Wound cultures growing beta Streptococcus. -11/25: Ortho note reviewed, at least 1 more day of IV antibiotics, will need stitches removed 10 days postop, OT consulted, remains on IV antibiotics. Infectious disease consulted for antibiotic recommendation and duration. Cultures from 11/21 demonstrating Streptococcus dysgalactiae #History of polysubstance abuse. Previously known to use methamphetamines. Urine screen for drugs was positive for opiates and amphetamines. -11/25: Will be incredibly important patient refrains from substance use, [employer] info will be given in discharge instructions if patient desires to follow-up #Nicotine dependence: Counseled to quit. Nicotine patch if needed. #Thrombocytopenia: platelets are up to 140 today. -11/25: Resolved #Asthma: Not in exacerbation. Albuterol. DVT prophylaxis; SCDs Charges/Coding Visit Charges Inpatient E&M: 17140 Subs Hosp L1
[2022-11-25 08:49] LABS: Pathologist Review Reviewed
[2022-11-25] MEDS: NYSTATIN 500,000 UNIT/5 ML UDC 500000 UNIT PO ×3 (08:59→22:32)
[2022-11-25] MEDS: BMX LIQUID 180 ML 15 ML PO ×3 (09:00→18:22)
[2022-11-25 09:45] VITALS: BP 140/74; PULSE 61; RESP 18; TEMP 36.6; O2SAT 94
[2022-11-25] MEDS: Ceftriaxone 2 GM in 0.9% Normal Saline (50mL MB+) 50 ML IV (10:31)
--- NOTE | 2022-11-25 12:45 | PN.ORTHO_ITS ---
Subjective Subjective Patient seen and examined. Reports improvement in pain, redness in his right arm. Denies fevers, chills, nausea vomiting, chest pain or shortness of breath. Objective Data Objective Data Vital Signs: Vital Signs Temp Pulse Resp BP Pulse Ox O2 Del Method O2 Flow Rate 97.8 F 61 18 140/74 H 94 Room Air 3 11/25/22 09:45 11/25/22 09:45 11/25/22 09:45 11/25/22 09:45 11/25/22 09:45 11/25/22 09:45 11/24/22 12:15 Oxygen Flow Rate (L/min) 3 Oxygen Delivery Method Room Air Weight: 176 lb 12.972 oz Body Mass Index (BMI) 26.2 Intake & Output: Intake and Output for Last 24 Hours 11/23/22 11/24/22 11/25/22 23:59 23:59 23:59 Intake Total 875 / 875 875 / 875 275 / 275 Balance 875 / 875 875 / 875 275 / 275 Lab / Micro Data 11/25/22 06:30 11/25/22 06:30 Labs: Laboratory Results - last 24 hr 11/21/22 15:20: Diff Path Review Reviewed 11/25/22 06:30: WBC 6.7, RBC 3.65 L, Hgb 10.1 L, Hct 32.1 L, MCV 87.9, MCH 27.7, MCHC 31.5 L, RDW Std Deviation 40.5, RDW Coeff of Praveen 12.5, Plt Count 160, MPV 9.6, Immature Gran % (Auto) 1.000 H, Neut % (Auto) 60.4, Lymph % (Auto) 25.6, [place] % (Auto) 9.9, Eos % (Auto) 2.8, Baso % (Auto) 0.3, Absolute Neuts (auto) 4.0, Absolute Lymphs (auto) 1.71, Nucleated RBC % 0, Sodium 142, Potassium 3.6, Chloride 110 H, Carbon Dioxide 29.0, Anion Gap 3 L, BUN 10, Creatinine 0.56 L, Estim Creat Clear Calc 174.73, Est GFR (MDRD) Af Amer 210, Est GFR (MDRD) Non-Af 174, BUN/Creatinine Ratio 17.9, Glucose 106, Calcium 7.9 L Micro: Microbiology 11/21/22 16:55 Wound - Arm Right Gram Stain - Final 11/21/22 16:55 Wound - Arm Right Wound Culture - Final Streptococcus dysgalactiae equ Physical Exam Narrative General - A&Ox3, NAD. VSS/AF. Right upper Extremity - SILT & 5/5 in radial, ulnar, musculocutaneous, axillary, and median nerve distributions. Radial, ulnar pulses 2+. Compartments soft and compressible. BCR in finger tips. Sanguinous drainage noted on dressing. Fusiform swelling present. \lymphangitic streaking has completely resolved. Pitting edema noted in the dorsum of the hand without induration or fluctuance. Left upper extremity- SILT & 5/5 in radial, ulnar, musculocutaneous, axillary, and median nerve distributions. Radial, ulnar pulses 2+. Compartments soft and compressible. BCR in finger tips. Volar pulp swelling is improved left index finger, soft. Minimal sanguinous drainage from incision. Nontender in the palm along the flexor tendon sheath. Assessment & Plan Assessment/Plan (1) Flexor tenosynovitis of finger: PLAN: POD#1 s/p I&D right long finger, left index finger - Pain control - Medicine following for medical management - OT for range of motion and edema control -Strict elevation bilateral hands -Patient appears to be responding well to surgery yesterday and continued IV antibiotics. I would recommend 1 additional day of IV antibiotics to ensure clinical improvement tomorrow prior to discharge home on oral antibiotics. Patient will need outpatient occupational therapy for range of motion of the involved digits and edema control. (2) Felon of finger: PLAN: See above
--- NOTE | 2022-11-25 14:08 | CON.PCM.ID_ITS ---
Assessment & Plan Assessment/Plan (1) Flexor tenosynovitis of finger: PLAN: OR 11/23 and 11/24/[address] Louis for I&D of R 3rd and L 2nd fingers. Surg cx with strep. On vanc/ceftriaxone. With h/o ivdu, plan on po abx at discharge. Hep C Ab (+). Hiv neg. Reports hives with PCN, tolerating ceftriaxone without issue. Will follow, thank you, d/w nursing (2) History of methamphetamine use: HPI Consult Data Date of Consult: 11/25/22 HPI Narrative Reason for Consultation: finger infection HPI Narrative: LISSETTE OBANDO, is a 36 M with h/o IV meth use, [facility] about a week prior to presenting with several days pain/swelling/redness in R middle and L index fingers. No fever or chills. Denies any recent IVDU. No trauma. Admitted, ortho consulted, taken to OR 11/23 and 11/[address] Lousi for I&D. Hands hurt. No n/v/d. Full ROS performed and neg except as noted above. PFSH Medical History Anxiety Asthma Bipolar disorder Depression Hepatitis History of intravenous drug abuse Kidney disease Polysubstance abuse PTSD (post-traumatic stress disorder) Schizophrenia Smoker Substance abuse Tobacco use Allergy/AdvReac Type Severity Reaction Status Date / Time levofloxacin [From Levaquin] Allergy Hives Verified 11/21/22 19:10 Penicillins Allergy Hives Verified 11/21/22 19:10 Family History (Updated 11/21/22 @ 16:[address] Codi Shafer MD) Mother COPD (chronic obstructive pulmonary disease) Father Bladder cancer Surgical History History of brain surgery Social History (Updated 11/21/22 @ 16:[address] Codi Shafer MD) household members: significant other Smoking Status: Current every day smoker tobacco type: cigarettes Smoking packs per day: 0.5 Smoking cigarettes per day: 10.0 alcohol intake: current alcohol intake frequency: a few times a week substance use type: IV drugs and methamphetamine Physical Exam Const alert, oriented x3 and no apparent distress General Appearance: cooperative HEENT normocephalic and head/scalp atraumatic Eyes PERRL and EOMs intact bilaterally Neck supple and No nodes Resp normal air movement and clear to auscultation bilaterally Cardio regular rate and regular rhythm GI soft to palpation, non-tender and non-distended Extremity General Extremity: Negative for edema Skin Skin Narrative: R hand wrapped. L finger with sutures in place, small area of drainage, diffuse swelling/some redness Neuro CN's II-XII intact bilaterally Lab / Micro Data Attestation: I reviewed the patient's lab results. 11/25/22 06:30 11/25/22 06:30 Labs: Laboratory Results - last 24 hr 11/21/22 15:20: Diff Path Review Reviewed 11/25/22 06:30: WBC 6.7, RBC 3.65 L, Hgb 10.1 L, Hct 32.1 L, MCV 87.9, MCH 27.7, MCHC 31.5 L, RDW Std Deviation 40.5, RDW Coeff of Praveen 12.5, Plt Count 160, MPV 9.6, Immature Gran % (Auto) 1.000 H, Neut % (Auto) 60.4, Lymph % (Auto) 25.6, [place] % (Auto) 9.9, Eos % (Auto) 2.8, Baso % (Auto) 0.3, Absolute Neuts (auto) 4.0, Absolute Lymphs (auto) 1.71, Nucleated RBC % 0, Sodium 142, Potassium 3.6, Chloride 110 H, Carbon Dioxide 29.0, Anion Gap 3 L, BUN 10, Creatinine 0.56 L, Estim Creat Clear Calc 174.73, Est GFR (MDRD) Af Amer 210, Est GFR (MDRD) Non-Af 174, BUN/Creatinine Ratio 17.9, Glucose 106, Calcium 7.9 L
[2022-11-25 14:55] VITALS: BP 147/84; PULSE 80; RESP 18; TEMP 36.9; O2SAT 95
[2022-11-25 23:00] VITALS: BP 137/82; PULSE 72; RESP 16; TEMP 36.6; O2SAT 98
[2022-11-25] MEDS: 0.9% Saline Lock 10 ML Syringe IV (23:39)
--- NOTE | 2022-11-26 00:43 | NURSING ---
9.25.23 @2345- Pt given Morphine prior to right hand soak in warm antibacterial soapy water per orders and redressed with sterile gauze and an KAYLA wrap. Pt tolerated well. Also, dressing over IV to right neck changed at this time due to irritation from tape that had been applied. pt tolerated well.
[2022-11-26 02:28] LABS: Absolute Lymphocyte Count 1.52 X10^3/uL (0.83-4.51); Absolute Neutrophil Count 4.2 X10^3/uL (2.0-7.7); Basophil# 0.03 X10^3/uL; Basophil% 0.5 % (0-1); Eosinophil# 0.18 X10^3/uL; Eosinophils% 2.7 % (0-5); Hematocrit 30.7 % (40-54); Hemoglobin 10.1 g/dL (13.0-16.5); Lymphocyte # 1.52 X10^3/ul (0.83-4.51); Lymphocyte % 22.8 % (19-41); Mean Corp Hgb Conc 32.9 g/dL (32-36); Mean Corpuscular Hgb 28.7 pg (27.0-32.0); Mean Corpuscular Volume 87.2 fL (80-94); Mean Platelet Vol. 9.4 fl (6.2-12.0); Monocyte# 0.61 X10^3/uL; Monocyte% 9.2 % (0-10); NRBC Flagged by Analyzer 0 % (0-5); Neutrophil # 4.21 X10^3/uL (2.7-7.7); Neutrophil % 63.1 % (47-70); Platelet Count 198 K/mm3 (150-450); RBC Distribution Width CV 12.6 % (11.6-14.6); RBC Distribution Width SD 40.1 fl (35.1-43.9); Red Blood Count 3.52 M/mm3 (4.6-6.2); White Blood Count 6.7 K/mm3 (4.4-11.0)
[2022-11-26] MEDS: Acetaminophen 325 MG Tablet 650 MG PO ×2 (02:35→09:26)
[2022-11-26] MEDS: oxyCODONE 5 MG Tablet PO ×2 (02:35→09:25)
[2022-11-26 03:01] LABS: Anion Gap 4 (5-15); BUN 18 mg/dL (7-18); BUN/Creat Ratio 25.9 RATIO (10-20); Calcium,Total 7.6 mg/dL (8.5-10.1); Chloride 109 mmol/L (98-107); EST Glomerular Filtration Rate 135 mL/min (>60); Est Glom Filt Rate - Afr Amer 163 mL/min (>60); Estimated Creatinine Clearance 139.79 ml/min; Glucose 154 mg/dL (74-106); Potassium 3.5 mmol/L (3.5-5.1); Sodium Level 142 mmol/L (136-145)
[2022-11-26 03:03] LABS: Vancomycin, Trough Level 10.8 ug/mL (5.0-15.0)
[2022-11-26 03:11] VITALS: BP 109/66; PULSE 87; RESP 18; TEMP 36.5; O2SAT 96
[2022-11-26] MEDS: Vancomycin HCl 1,500 MG in 0.9% Normal Saline (500mL Bag) 500 ML 250 MG IV (03:50)
[2022-11-26] MEDS: Vancomycin Trough/Random Due 1 LAB MC (03:50)
--- NOTE | 2022-11-26 04:39 | PCM.RX.CS ---
Consult Antibiotic Management Pharmacy has been consulted to manage selected antiobiotic: Vancomycin Type of Intervention Type of Consult: Follow-up Labs Labs: Sodium 142 mmol/L (136-145) 11/26/22 02:18 Potassium 3.5 mmol/L (3.5-5.1) 11/26/22 02:18 Chloride 109 mmol/L (98-107) H 11/26/22 02:18 Carbon Dioxide 29.0 mmol/L (21.0-32.0) 11/26/22 02:18 Anion Gap 4 (5-15) L 11/26/22 02:18 BUN 18 mg/dL (7-18) 11/26/22 02:18 Creatinine 0.70 mg/dL (0.70-1.30) 11/26/22 02:18 Est GFR (MDRD) Af Amer 163 mL/min (>60) 11/26/22 02:18 Est GFR (MDRD) Non-Af 135 mL/min (>60) 11/26/22 02:18 BUN/Creatinine Ratio 25.9 RATIO (10-20) H 11/26/22 02:18 Glucose 154 mg/dL (74-106) H 11/26/22 02:18 Vancomycin Trough 10.8 ug/mL (5.0-15.0) 11/26/22 02:18 Microbiology Microbiology: Microbiology 11/21/22 16:55 Wound - Arm Right Gram Stain - Final 11/21/22 16:55 Wound - Arm Right Wound Culture - Final Streptococcus dysgalactiae equ Pharmacy Plan for Drug Dosing Pharmacy Plan for Drug Dosing: Pharmacy Service will continue to monitor and adjust dosing as required. TROUGH 10.8 @ 8 HOURS. INCREASE TO 1500MG Q8H AND FOLLOW UP TROUGH PRIOR TO 4TH DOSE Follow-Up Labs Follow-Up Labs: Trough: Vancomycin Date/Time Labs Ordered Labs to be done on [date and time ordered]: 11/27 @ 0300
--- NOTE | 2022-11-26 05:02 | NURSING ---
Pt vaping in the bathroom. Security called and they had a talk with, Pt agree to not vape or smoke in bathroom again
--- NOTE | 2022-11-26 06:50 | NURSING ---
Pt called out voicing concern about the IV in his left neck and was concerned it was leaking. (IV site changed) This nurse entered the room and it smelled of cigarette smoke and the air in the room was smoky. Pt asked if he smoked and he denied smoking cigarettes but reports he vaped. This nurse notified pt that there is smoke in the room and that if he smokes in the room he may be discharged, charge nurse notified and security called and spoke to patient. Pt notified that if he is caught smoking again he may lose visitor priviledges and/ or the police will be called and they will come escort him out of the hospital. Pt verbalized understanding. This morning nurse entered the room and pt refused to soak his right hand, refused daily weight and denied needing pain medication.
--- NOTE | 2022-11-26 07:06 | PCM.PN.ORT ---
Subjective Subjective Patient seen and examined. Patient feeling somewhat better. Denies any fevers, chills, nausea vomiting, chest pain or shortness of breath. Objective Data Objective Data Vital Signs: Vital Signs Temp Pulse Resp BP Pulse Ox O2 Del Method O2 Flow Rate 97.7 F L 87 18 109/66 96 Room Air 3 11/26/22 03:11 11/26/22 03:11 11/26/22 03:11 11/26/22 03:11 11/26/22 03:11 11/26/22 03:12 11/24/22 12:15 Oxygen Flow Rate (L/min) 3 Oxygen Delivery Method Room Air Weight: 176 lb 12.972 oz Body Mass Index (BMI) 26.2 Intake & Output: Intake and Output for Last 24 Hours 11/24/22 11/25/22 11/26/22 23:59 23:59 23:59 Intake Total 875 / 875 875 / 1175 830 / 830 Balance 875 / 875 875 / 1175 830 / 830 Lab / Micro Data 11/26/22 02:18 11/26/22 02:18 Labs: Laboratory Results - last 24 hr 11/21/22 15:20: Diff Path Review Reviewed 11/21/22 17:07: Miscellaneous Test 11/25/22 06:30: Sodium 142, Potassium 3.6, Chloride 110 H, Carbon Dioxide 29.0, Anion Gap 3 L, BUN 10, Creatinine 0.56 L, Estim Creat Clear Calc 174.73, Est GFR (MDRD) Af Amer 210, Est GFR (MDRD) Non-Af 174, BUN/Creatinine Ratio 17.9, Glucose 106, Calcium 7.9 L 11/26/22 02:18: WBC 6.7, RBC 3.52 L, Hgb 10.1 L, Hct 30.7 L, MCV 87.2, MCH 28.7, MCHC 32.9, RDW Std Deviation 40.1, RDW Coeff of Praveen 12.6, Plt Count 198, MPV 9.4, Immature Gran % (Auto) 1.700 H, Neut % (Auto) 63.1, Lymph % (Auto) 22.8, [place] % (Auto) 9.2, Eos % (Auto) 2.7, Baso % (Auto) 0.5, Absolute Neuts (auto) 4.2, Absolute Lymphs (auto) 1.52, Nucleated RBC % 0, Sodium 142, Potassium 3.5, Chloride 109 H, Carbon Dioxide 29.0, Anion Gap 4 L, BUN 18, Creatinine 0.70, Estim Creat Clear Calc 139.79, Est GFR (MDRD) Af Amer 163, Est GFR (MDRD) Non-Af 135, BUN/Creatinine Ratio 25.9 H, Glucose 154 H, Calcium 7.6 L, Vancomycin Trough 10.8 Micro: Microbiology 11/21/22 16:55 Wound - Arm Right Gram Stain - Final 11/21/22 16:55 Wound - Arm Right Wound Culture - Final Streptococcus dysgalactiae equ Physical Exam Narrative General - A&Ox3, NAD. VSS/AF. Right upper Extremity - SILT & 5/5 in radial, ulnar, musculocutaneous, axillary, and median nerve distributions. Radial, ulnar pulses 2+. Compartments soft and compressible. BCR in finger tips. Serous drainage noted on dressing. Fusiform swelling present. \lymphangitic streaking has completely resolved. Pitting edema noted in the dorsum of the hand without induration or fluctuance. Edema is somewhat improved. Left upper extremity- SILT & 5/5 in radial, ulnar, musculocutaneous, axillary, and median nerve distributions. Radial, ulnar pulses 2+. Compartments soft and compressible. BCR in finger tips. Volar pulp swelling is improved left index finger, soft. Minimal sanguinous drainage from incision. Nontender in the palm along the flexor tendon sheath. Assessment & Plan Assessment/Plan (1) Flexor tenosynovitis of finger: PLAN: POD#2 s/p I&D right long finger, left index finger - Pain control - Medicine following for medical management - OT for range of motion and edema control -Strict elevation bilateral hands -Patient appears to be responding well to surgery and IV antibiotics. Patient will need outpatient occupational therapy for range of motion of the involved digits and edema control. I would recommend OT this week upon discharge. Patient stable for discharge on oral antibiotics from my standpoint. Twice daily 10-minute soap water soaks with dry sterile dressing changes. Strict elevation at home. Range of motion exercises at home. Follow-up in 1 week for wound check and possible suture removal. (2) Felon of finger: PLAN: See above
[2022-11-26] MEDS: Ceftriaxone 2 GM in 0.9% Normal Saline (50mL MB+) 50 ML IV (09:25)
[2022-11-26] MEDS: NYSTATIN 500,000 UNIT/5 ML UDC 500000 UNIT PO (09:27)
[2022-11-26] MEDS: 0.9% Saline Lock 10 ML Syringe IV (09:30)
[2022-11-26] MEDS: 0.9% Normal Saline (250mL Bag) 250 ML 15 ML IV (09:37)
[2022-11-26 09:55] VITALS: BP 133/86; PULSE 69; RESP 18; TEMP 36.8; O2SAT 99
--- NOTE | 2022-11-26 10:03 | CASEMGMT ---
Addendum entered by Anita Shelby 11/26/22 10:40: MOHIT STRINGER made aware pt wants his rx sent to [facility] pharmacy. TC to retail pharmacy, spoke with Daniel, he will call [facility] to get meds trf'd here. Original Note: Spoke with ID, pt to dc with po atb. Pt with no wound care, just soaks. MOHIT STRINGER into pt room, pt sitting up in chair. Pt aware of importance of soaks. Provided pt with a rx for outpt OT and discussed where pt could obtain services. Offered to set up appt for this and pt declined. Pt denies further homegoing needs.
--- NOTE | 2022-11-26 10:09 | PCM.DC ---
Discharge Instructions Diet Discharge Diet: No restrictions Activity Discharge Activity: - (Occupational therapy for hands) Follow Up Care Test Results: Test results from this visit will be discussed in further detail at your follow-up appointment, if applicable. Discharge Plan Admission Admit Date/Time: 11/21/22 16:30 Primary Reason for Your Visit: Hand infection Attending Provider: Elizabeth Sanchez Primary Care Provider: Care Physician,No Primary Consulting Providers: Codi Shafer; Thomas Louis; Dilia Case; Chacorta Daniels Instructions Patient Instructions: Substance Abuse Rehab Program Additional Instructions / Restrictions: DISCHARGE INSTRUCTIONS PLEASE READ *Please take this with you to your next doctors appointment* -You will be discharged on antibiotics, you will take cefdinir 300 mg twice daily, your preferred pharmacy on file was [facility] so this was sent to [facility] by the infectious disease doctor -Several days of pain medication also sent to [facility] on file in [place] -You will need to follow-up with Dr. Louis with orthopedics in 1 week for follow-up and possible stitches removal, contact information provided below, please contact the office to schedule your appointment on discharge. -Dry sterile dressing changes at home twice daily after twice daily 10 minute soap water soaks of both involved fingers, will need to elevate both arms at home and continue range of motion exercises. He will be given a prescription for outpatient occupational therapy and it is highly suggested you begin this this week upon discharge. - It is strongly advised that you refrain from any substance use. Please call [facility] located at [address] [place] [phone] (ph [phone]) if you are interested in further resources -Please call your primary care provider's office upon discharge to schedule a hospital follow up within 1 week. -If you do not have a primary care physician of list of local primary care physicians can be provided for you upon discharge. Please ask for this list prior to discharge -For any concerning signs or symptoms please call 911 or proceed to the nearest emergency department Discharge Orders/Prescriptions Prescriptions: New cefdinir 300 mg capsule 300 mg PO Q12H 10 Days Qty: 20 0RF oxycodone 5 mg Tablet 5 mg PO Q6H PRN PRN (Reason: Pain Score 4-10) 3 Days Qty: 15 0RF Referrals / Follow Up: Thomas Louis DO [Med Staff - Active Staff] - 12/02/22 Care Physician,No Primary [Primary Care Provider] - ( -If you do not have a primary care physician of list of local primary care physicians can be provided for you upon discharge. Please ask for this list prior to discharge ) Disposition Disposition (needs filled in before D/C Order can be placed): Home, Self Care
--- NOTE | 2022-11-26 10:12 | PN.ID_ITS ---
Physical Exam Narrative Feeling ok, fingers hurt, no fever Const alert and no apparent distress General Appearance: cooperative Resp normal air movement and clear to auscultation bilaterally Cardio regular rate and regular rhythm GI soft to palpation, non-tender and non-distended Skin Skin Narrative: finger on each hand with sutures in place, redness/swelling/soreness ID ID: Route of nutrition/ use of supplements: [] Nutritional Intake: [] IV Site: [] Mccarthy Catheter: [] Assessment & Plan Assessment/Plan (1) Flexor tenosynovitis of finger: PLAN: OR 11/23 and 11/24/[address] Louis for I&D of R 3rd and L 2nd fingers. Surg cx with strep. On vanc/ceftriaxone. With h/o ivdu, plan on 10 days po omnicef at discharge Hep C Ab (+). Hiv neg. Reports hives with PCN, tolerating ceftriaxone without issue. Suspect sore throat is viral in origin. He is to monitor for fever, rash, worsening finger pain/sw elling/redness/drainage. Will follow, d/w Dr. Sanchez. (2) History of methamphetamine use:
--- NOTE | 2022-11-26 10:14 | DS.PCM_ITS ---
Providers Date of Admission: 11/21/22 Date of Discharge: 11/26/22 Primary Care Physician: No Primary Care Phys Consultations 11/21/22 20:30 Consult: Onc/Wound/white lead grinder Routine Comment: Reason for Consult:: Acute flexor tenosynovitis Consult: Orthopedics Routine Consulting Provider: Thomas Louis Reason for Consult: Acute flexor tenosynovitis EMERGENT Consult: Yes MD Notified: Yes Date Notified: 11/21/22 Time Notified: 16:33 Method of Notification: ED Physician Initiated 11/25/22 08:24 Consult: Infectious Disease Routine Consulting Provider: Chacorta Daniels Reason for Consult: hand abscess s/p I&D, abx and duration recs EMERGENT Consult: No MD Notified: Yes Date Notified: 11/25/22 Time Notified: 08:24 Method of Notification: Answering Service Reason For Visit: ACUTE FLEXOR TENOSYNOVITIS Diagnosis Discharge Diagnosis (1) Flexor tenosynovitis of finger: Status: Acute Code(s): M65.9 - Synovitis and tenosynovitis, unspecified Plan #Acute flexor tenosynovitis of the right middle finger and a feeling of the left index finger with dorsal subcutaneous abscess #History of polysubstance abuse. Previously known to use methamphetamines. Urine screen for drugs was positive for opiates and amphetamines. #Nicotine dependence: #Thrombocytopenia #Asthma Medications at Discharge Home Medications cefdinir 300 mg capsule 300 mg PO Q12H 10 days #20 caps 11/26/22 nystatin 100,000 unit/mL oral suspension 500,000 unit (5 mL) PO 4X/DAY 5 days #100 mL 11/26/22 oxycodone 5 mg tablet 5 mg PO Q6H PRN PRN Pain Score 4-10 3 days #15 tabs 11/26/22 Hospital Course Summary of Care Provided Minutes Spent on Discharge: 35 Hospital Course: The patient is a 36 y/o M w/ PMHx: PTSD, Asthma, Polysubstance abuse who presents to the [facility] ED on 11/21/22 recently out of [facility] 6 days prior to current presentation with known history of methamphetamine abuse and presented w/ history of pain and swelling to the right middle finger starting the day prior following an injury with his finger bending backwards. He denied current illicit drug or IV drug use in the ED but significant other at the time he was present thought that he was back on amphetamines with possible IV usage. In the ED patient with white count of 28, heart rate 108, plain film of right hand with significant diffuse soft tissue swelling. Patient placed on broad-spectrum antibiotics, this was cultured, orthopedics were consulted. Patient was taken to the OR 11/21/2022 for washout, he was found to have purulent flexor tenosynovitis on right index finger. Patient improved with IV antibiotics and wound grew beta Streptococcus, ID consulted as well for antibiotic plan, ultimately given sensitivities he was able to be discharged on oral cefdinir. On day of discharge patient still having pain but does feel better than previous, counseled on substance use and dangers recurrence. Patient's nurse also discussed that he had been resistant to soaks due to pain, discussed with him if he does not adhere to recommendations from orthopedic surgery infection could get worse and could even lead to amputation if it gets into the bone or he could have subsequent infection that gets into his bloodstream. He verbalized his understanding. Discharge instructions as follows: -You will be discharged on antibiotics, you will take cefdinir 300 mg twice daily, your preferred pharmacy on file was [facility] so this was sent to [facility] by the infectious disease doctor -Several days of pain medication also sent to [facility] on file in [place] -You will need to follow-up with Dr. Louis with orthopedics in 1 week for follow-up and possible stitches removal, contact information provided below, please contact the office to schedule your appointment on discharge. -Dry sterile dressing changes at home twice daily after twice daily 10 minute soap water soaks of both involved fingers, will need to elevate both arms at home and continue range of motion exercises. He will be given a prescription for outpatient occupational therapy and it is highly suggested you begin this this week upon discharge. - It is strongly advised that you refrain from any substance use. Please call [facility] located at [address] [place] [phone] (ph [phone]) if you are interested in further resources -Please call your primary care provider's office upon discharge to schedule a hospital follow up within 1 week. -If you do not have a primary care physician of list of local primary care physicians can be provided for you upon discharge. Please ask for this list prior to discharge -For any concerning signs or symptoms please call 911 or proceed to the nearest emergency department Physical Exam Narrative General: Alert, oriented, no apparent distress HEENT: Atraumatic, normocephalic Eyes: Anicteric, normal conjunctiva, extraocular movements grossly intact Neck: Supple Respiratory: Clear to auscultation bilaterally, normal respiratory effort Cardiovascular: Regular rate and rhythm GI: Soft, nontender, nondistended Extremities: No edema Musculoskeletal: Moving all extremities Neuro: No overt focal neurological deficits Skin: Left finger right hand examined, appears stable from yesterday Psych: Superficially cooperative Weight / BMI Weight Weight: 80.2 kg Body Mass Index (BMI) 26.2 ABG / Lab / Microbiology Data 11/26/22 02:18 11/26/22 02:18 Laboratory: Laboratory Results - last 24 hr 11/21/22 17:07: Miscellaneous Test 11/26/22 02:18: WBC 6.7, RBC 3.52 L, Hgb 10.1 L, Hct 30.7 L, MCV 87.2, MCH 28.7, MCHC 32.9, RDW Std Deviation 40.1, RDW Coeff of Praveen 12.6, Plt Count 198, MPV 9.4, Immature Gran % (Auto) 1.700 H, Neut % (Auto) 63.1, Lymph % (Auto) 22.8, [place] % (Auto) 9.2, Eos % (Auto) 2.7, Baso % (Auto) 0.5, Absolute Neuts (auto) 4.2, Absolute Lymphs (auto) 1.52, Nucleated RBC % 0, Sodium 142, Potassium 3.5, Chloride 109 H, Carbon Dioxide 29.0, Anion Gap 4 L, BUN 18, Creatinine 0.70, Estim Creat Clear Calc 139.79, Est GFR (MDRD) Af Amer 163, Est GFR (MDRD) Non-Af 135, BUN/Creatinine Ratio 25.9 H, Glucose 154 H, Calcium 7.6 L, Vancomycin Trough 10.8 Microbiology: Microbiology 11/21/22 16:55 Wound - Arm Right Gram Stain - Final 11/21/22 16:55 Wound - Arm Right Wound Culture - Final Streptococcus dysgalactiae equ D/C Instructions Discharge Diet: No restrictions Meaningful Use Info Meaningful Use Diagnoses (Choose all that apply): None applicable Discharge Plan Admission Admit Date/Time: 11/21/22 16:30 Primary Reason for Your Visit: Hand infection Attending Provider: Elizabeth Sanchez Primary Care Provider: Care Physician,No Primary Consulting Providers: Codi Shafer; Thomas Louis; Dilia Case; Chacorta Burciaga Instructions Patient Instructions: Substance Abuse Rehab Program Additional Instructions / Restrictions: DISCHARGE INSTRUCTIONS PLEASE READ *Please take this with you to your next doctors appointment* -You will be discharged on antibiotics, you will take cefdinir 300 mg twice daily, your preferred pharmacy on file was [facility] so this was sent to [facility] by the infectious disease doctor -Several days of pain medication also sent to [facility] on file in [place] -You will need to follow-up with Dr. Louis with orthopedics in 1 week for follow-up and possible stitches removal, contact information provided below, please contact the office to schedule your appointment on discharge. -Dry sterile dressing changes at home twice daily after twice daily 10 minute soap water soaks of both involved fingers, will need to elevate both arms at home and continue range of motion exercises. He will be given a prescription for outpatient occupational therapy and it is highly suggested you begin this this week upon discharge. - It is strongly advised that you refrain from any substance use. Please call [facility] located at [address] [place] [phone] (ph [phone]) if you are interested in further resources -Please call your primary care provider's office upon discharge to schedule a hospital follow up within 1 week. -If you do not have a primary care physician of list of local primary care physicians can be provided for you upon discharge. Please ask for this list prior to discharge -For any concerning signs or symptoms please call 911 or proceed to the nearest emergency department Discharge Orders/Prescriptions Prescriptions: New cefdinir 300 mg capsule 300 mg PO Q12H 10 Days Qty: 20 0RF oxycodone 5 mg Tablet 5 mg PO Q6H PRN PRN (Reason: Pain Score 4-10) 3 Days Qty: 15 0RF nystatin 100,000 unit/mL Suspension 500,000 unit PO 4X/DAY 5 Days Qty: 100 0RF Referrals / Follow Up: Thomas Louis DO [Med Staff - Active Staff] - 12/02/22 Care Physician,No Primary [Primary Care Provider] - ( -If you do not have a primary care physician of list of local primary care physicians can be provided for you upon discharge. Please ask for this list prior to discharge ) Disposition Disposition (needs filled in before D/C Order can be placed): Home, Self Care Charges/Coding Visit Charges Inpatient E&M: 79603 Disch Hosp >30min
--- NOTE | 2022-11-26 10:51 | PHA.DC_ITS ---
Pharmacy [facility] has performed discharge medication reconciliation and counseling for this patient. The patient's discharge medication list was reviewed for discrepancies and discrepancies were resolved. The patient was counseled on the following discharge medications and changes in medications for homegoing were reviewed. The Reason for Use, instructions for use, and potential side effects were reviewed for all new medications. The patient's questions regarding all of their medications were answered. 1. Cefdinir 300 mg PO BID x 10 days 2. Oxycodone 5 mg PO Q4H PRN pain The patient and patient's were able to verbally demonstrate an understanding of their discharge medications. Medications at Discharge Home Medications cefdinir 300 mg capsule 300 mg PO Q12H 10 days #20 caps 11/26/22 oxycodone 5 mg tablet 5 mg PO Q6H PRN PRN Pain Score 4-10 3 days #15 tabs 11/26/22
== END 2022-11-26 13:27 | disposition home or self-care (01) | DRG 351 ==
LOC: ED 16:32 → MS3 17:48
PROVIDERS: Student in an Organized Health Care Education/Training Program; Admitting Provider Family Medicine; Emergency Provider Emergency Medicine; Visit Provider Internal Medicine
PROC: 0HDGXZZ Extraction of Left Hand Skin, External Approach (ICD-10-PCS; principal; 2022-11-24 10:30)
DX: M65.841 Other synovitis and tenosynovitis, right hand (principal); D69.6 Thrombocytopenia, unspecified; N17.9 Acute kidney failure, unspecified; J45.909 Unspecified asthma, uncomplicated; F17.210 Nicotine dependence, cigarettes, uncomplicated; D72.829 Elevated white blood cell count, unspecified; Z82.5 Family history of asthma and other chronic lower respiratory diseases; R73.9 Hyperglycemia, unspecified; Z79.2 Long term (current) use of antibiotics; F43.10 Post-traumatic stress disorder, unspecified; L03.012 Cellulitis of left finger; L03.113 Cellulitis of right upper limb
CPT/HCPCS: 36415; 73130; 80048; 80053; 80076; 80202; 80307; 83605; 85025; 85610; 85730; 86703; 86706; 86803; 87070; 87077; 87186; 87205; 87340; 87640; 87880; 93005; 94668; 97165; 97166; 97802; 99252; 99283; 99285; 99406; J7030; J7040; J7050; A4216; G0463; J0696; J2405